=== PATIENT | male | born 1955 | race Caucasian/White ===

== ENCOUNTER 2017-01-06 21:12 | Inpatient (IN) | payer MEDICARE, OTHER ==
[~2017-01-06] VITALS: Ht 165.1 cm; Wt 61.5 kg
[~2017-01-06 21:12] MED LIST: ALBU18HF INH; ASPI-973 PO; CEFU500T61 PO; CHOL200025 PO; FERR140T PO; FOLI1TAB18 PO; LEVO137T24 PO; METH2.5T PO; METR500T PO; OMEP20CA11 PO; OXYC20TA4 PO; SYMINH INHALATION; TIOT18CA3 IH
--- NOTE | 2017-01-06 21:57 | ED.REPORT ---
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 He c/o associated right hip pain. He denies head injury. The pt reports that his shoelace got stuck in the door of his tube balancer, causing him to fall. Pt denies taking blood thinners aside from aspirin. Nursing Notes Stated Complaint: GLF, RIGHT HIP PAIN Chief Complaint: GLF Nursing Notes Reviewed: Yes Allergies: Coded Allergies: Contrast Media (Verified Allergy, Severe, Rash,Itching,, 05/05/16) Penicillins (Verified Allergy, Severe, 05/05/16) unknown but told it was a severe reaction as child iodine (Verified Allergy, Severe, 05/05/16) vancomycin (Verified Allergy, Intermediate, 05/05/16) low platelets Scheduled Aspirin (Aspirin) 81 Mg Tablet 81 MG PO DAILY Cefuroxime Axetil (Cefuroxime) 500 Mg Tablet 500 MG PO BID Cholecalciferol (Vitamin D3) (Vitamin D3) 2,000 Unit Tablet 2,000 UNIT PO DAILY Folic Acid (Folic Acid) 1 Mg Tablet 1 MG PO DAILY Levothyroxine (Synthroid) 137 Mcg Tablet 137 MCG PO DAILY Methotrexate Sodium (Methotrexate) 2.5 Mg Tablet 6 TAB PO WEEKLY Omeprazole (Omeprazole) 20 Mg Capsule.dr 20 MG PO BID Tiotropium [place] (Spiriva) 18 Mcg Cap.w.dev 1 PUFF IH DAILY Scheduled PRN Albuterol Sulfate (Ventolin HFA Inhaler) 200 Puff/18 Gm Inhaler 2 PUFF INH Q4 PRN PRN For Wheezing oxyCODONE (oxyCODONE) 20 Mg Tablet 20 MG PO QID PRN PRN For Pain General Time Seen by Provider: 22:10 Chief Complaint Hip injury right Hx Obtained From: Patient, EMS Arrived By: Ambulance Onset Occurred: Just prior to arrival Symptom Duration: Since onset Caused by: Accidental Location: Hip, R lateral aspect Quality: Itching Severity: Current: Moderate Severity: Maximum: Moderate Recent Healthcare: Recent doctor visit Similar Sx Previous: No Past Medical History Past Medical History RA SBO Kidney stones (1x) Reports: COPD, Cancer (laryngeal metastatic sqamous cell carcinoma with mets to lungs and liver), GERD Reports: Urinary tract infection Past Surgical History Spinal surgery Multiple elbow surgeries Colostomy Reports: Tonsillectomy Family History Noncontributory Smoking History Former Smoker Social History Alcohol Use: Denies alcohol use Drug Use: Denies drug use Other Social History: Good social support, , Local resident Ambulatory Status Independent Review of Systems + right hip pain Denies left hip pain Denies head injury Constitutional: Denies: Fever Complete sys rev & neg: except as marked. Physical Exam Initial Vital Signs Vital Signs (First) Date Time Temp Pulse Resp B/P Pulse Ox O2 Delivery O2 Flow Rate FiO2 01/06/17 22:00 37.1 94 20 135/94 94 Room Air Initial VS: Reviewed Head / Eyes: Atraumatic, Normocephalic Neck: Supple, Full range of motion Respiratory: Breath sounds normal, Clear to auscultation, No respiratory distress Abdomen / GI: Soft, Non-tender Upper Extremities: Vascular intact, Neuro intact Skin: Warm, Dry, No cyanosis Neurologic: Alert, Oriented, Nonfocal Psychiatric: Mood/affect normal, Behavior normal Lower Extremity / Pelvis / MS: Neurologic intact, Vascular intact Right hip is tender with minimal movement. He was carrying his left leg in a flexed position, but he reports that his pain is in the right hip. General/Constitutional: Awake, Alert Cardiovascular: Heart rate NL, Regular rhythm, Heart sounds NL No edema Interpretation & Diagnostics Lab Results Interpretation Result Diagram: 01/07/17 0441 01/07/17 0441 Test 01/06/17 23:07 01/06/17 23:23 Band Neutrophils % 1% (1-5) Prothrombin Time 10.7sec (8.1-12.5) Prothromb Time International Ratio 1.00ratio Activated Partial Thromboplast Time 25.6sec (22.8-33.0) Magnesium Level 1.6mg/dL (1.6-2.6) Lipase 25U/L (13-60) Hold Fry Top Tube Received (Received) ECG Interpretation ECG Interpretation: Sinus rhythm with a rate of 92 Biatrial enlargement Anterospetal infarct, age inderterminate Time: 22:23 Interpreted by: ED physician X-Ray Chest Interpretation Chest Xray Interpretation: Negative View: Portable, 1 view Interpretation / Wet Read by: Wet read ED physician X-Ray Interpretation Xray Interpretation: Intertochanteric fracture X-Ray Ordered: Pelvis, Hip right Interpretation / Wet Read by: Wet read ED physician Re-Eval/Medical Decision Med Decision/Clinical Course 61-year-old with locally recurrent squamous cell carcinoma of the neck and lung, presents after mechanical fall with a right intertrochanteric hip fracture. This will require surgical intervention. Admitted to the medicine service with consultation to orthopedics. Circumscribed area and pubic ramus may represent metastatic disease. Source of Hx: Old records Re-Evaluation/Progress : Time of Eval: 23:16 Re-Evaluation/Progress Note: Pt rechecked. Informed pt of plan for admission. Pt understands and agrees with plan for admission. All questions addressed. Consultation : Referral / Consult Name: Kyle Connor MD Consulted With: Hospitalist Call Returned at: 23:14 Subscription Agent: Will see patient, Agrees with eval, Agrees with plan, Accepts admit Counseled Regarding: Diagnosis, Lab results, Need for admission Discharge & Departure Impression: Primary Impression: Intertrochanteric fracture of right hip Encounter type: initial encounter Fracture type: closed Qualified Code: S72.141A - Displaced intertrochanteric fracture of right femur, initial encounter for closed fracture Disposition: ADMITTED TO HOSPITAL Discharge Condition All VS Reviewed: Yes Condition: Stable Referrals: Antione Rodriguez MD (PCP) Hiwot Attestation Portions of this note were transcribed by Marissa gO. I, Dr. Fried personally performed the history, physical exam and medical decision-making; I reviewed and confirmed the accuracy of the information in the transcribed note. Signed by: Hiwot Jurado, 01/06/17. copies to: Antione Rodriguez MD, Christopher W MD Jan 06, 2017 21:56 Marissa Lopez Jan 06, 2017 22:27
[2017-01-06 22:00] VITALS: BP 135/94; PULSE 94; RESP 20; O2SAT 94
[2017-01-06] MEDS ORDERED: 0.9% Sodium Chloride 1,000 ML IV ONE (22:14)
[2017-01-06] MEDS ORDERED: Ondansetron 2 mg/mL 2 mL Inj IVPUSH PRN ×2 (22:20→23:20)
[2017-01-06] MEDS: HYDROmorphone 0.5 mg/0.5 mL iSecure Syringe IVPUSH PRN ×2 (23:15→23:57)
[2017-01-06] MEDS ORDERED: Polyethylene Glycol (PEG) 17 Gm Powder PO PRN (23:20)
[2017-01-06 23:26] LABS: BASOPHILS % (AUTO) 0.3 % (0-3); EOSINOPHILS % (AUTO) 1.5 % (0-5); MONOCYTES % (AUTO) 8.1 % (4-12); Mean Corpuscular Hemoglobin 30.8 pg (27.0-35.0); Mean Corpuscular Volume 93.5 fL (81-100); NEUTROPHILS % (AUTO) 86.2 % (40-74); Platelet Count 172 bil/L (150-400)
[2017-01-06 23:47] LABS: Magnesium 1.6 mg/dL (1.6-2.6)
[2017-01-07] VITALS (10 sets, daily range): BP systolic 107–156; BP diastolic 75–97; PULSE 89–109; RESP 16–24; O2SAT 90–99
--- NOTE | 2017-01-07 00:01 | PCM.HPMED ---
Subjective Date of Service Jan 06, 2017 Primary Provider: Admitting Physician: Kyle Connor MD Primary Care Physician: Antione Rodriguez MD Attending Physician: Kyle Connor MD Admit Status: From the Emergency Department, Remote Telemetry Chief Complaint: Ground level fall, mechanical History of Present Illness: Mr. 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 Initial imaging revealed a right intratrochanteric fracture. Patient was admitted for evaluation and treatment of acute right intertrochanteric fracture. 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 He denies any loss of consciousness, near syncope, syncope, chest pain, palpitation, dizziness, acute vision changes, headache, head trauma, or any other symptoms or events preceding the fall. Other than this recent fall, patient states he has been doing fairly well over recent weeks. He follows up with Dr. Patel of infectious disease, with most recent visit dated 11/14/2016 , for a lung abscess on long-term antibiotic therapy of clindamycin. He is followed by [facility] oncology, Dr. Steward, for his squamous cell carcinoma of head and neck with multiple metastases, most recent visit dated 11/06/2016, and patient was found to be clinically in remission at that time. He is followed by Dr. Garcia for rheumatoid arthritis. At time of admission, patient denies any pain, including at the right hip. He notes mild pain with mobility of the right hip. Denies any fever, chills, nausea, vomiting, lightheadedness, dizziness. Denies any symptoms of GI upset, or abnormal stool output into his ostomy bag. In the ED, T 37.1, pulse 94, respiratory 20, blood pressure 135/94, 94% in room air; initial labs revealed white count 12.8 with 86.2% neutrophils, hemoglobin 12.4, hematocrit 37.6, platelets 172, electrolytes still pending at time of admission; stat imaging of pelvis revealed right-sided inter-trochanteric fracture. The ED kindly left a voicemail message for orthopedics, this patient was nonemergent. Patient was transported to medical floor in stable condition. Review of Systems: Complete review of systems obtained, pertinent positives and negatives as noted in history of present illness Allergies Coded Allergies: Contrast Media (Verified Allergy, Severe, Rash,Itching,, 05/05/16) Penicillins (Verified Allergy, Severe, 05/05/16) unknown but told it was a severe reaction as child iodine (Verified Allergy, Severe, 05/05/16) vancomycin (Verified Allergy, Intermediate, 05/05/16) low platelets Home Medications From [facility] documentation 11/14/2016: Ramakrishna Johnson [phone] 11/14/2016 02:00 PM 05/16 Medications (Added or Continued this visit) Start Date Medication Directions Stop Date Aspir-81 81 mg tablet,delayed release take 1 tablet by oral route every day CALCIUM take 1 by Oral route every day cefuroxime axetil 500 mg tablet take 1 tablet by oral route every 12 hours cholecalciferol (vitamin D3) 2,000 unit capsule 11/14/2016 clindamycin 300 mg capsule take 1 capsule by oral route every 6 hours ferrous sulfate ER 140 mg (45 mg iron) tablet,extended release folic acid Levoxyl 137 mcg tablet take 1 tablet by oral route every day methotrexate sodium 2.5 mg tablet take 6 tablet by oral route every week metronidazole 500 mg tablet take 1 tablet by oral route every 12 hours OTREXUP inject 0.4 milliliter by subcutaneous route every week oxycodone 20 mg tablet take 1 tablet by oral route every 4 - 6 hours 04/18/2011 PRILOSEC take 1 capsule by oral route every day before a meal SPIRIVA inhale 1 capsule by inhalation route every day Symbicort 160 mcg-4.5 mcg/actuation HFA aerosol inhaler inhale 2 puff by inhalation route 2 times every day in the morning and evening Ventolin HFA 90 mcg/actuation aerosol inhaler inhale 2 puff by inhalation route every 4 - 6 hours as needed PMH Squamous cell carcinoma of the head and neck with metastases, including liver, paratracheal, retrosternal, Oncology history obtained from oncology note dated 11/06/2016: HISTORY OF PRESENT ILLNESS: 1. This is a patient who was originally treated for squamous cell carcinoma of the head and neck. Dr. Loepz' note of October 05, 2016 summarizes chemoradiation therapy for squamous cell carcinoma of the larynx in August 2008, treatment for liver metastasis in December 2009, radiation to a paratracheal mass in 2010 and to a retrosternal lesion in 2010 and left lung in 2010 and, finally, a late recurrence of biopsy-proven squamous carcinoma to a lesion on the right lung with SBRT, completed December 2015. That was the last of his radiation therapy. 2. The patient has had a recent protracted hospitalization for community-acquired pneumonia with lung abscess on the right due to MSSA with acute kidney injury. 3. The cavitary mass in the right upper lobe is being followed without biopsy and is believed to be likely non-malignant. 4. Complex history of multiple treatments for isolated metastatic recurrences of squamous carcinoma originating in the head and neck, as described above. 5. 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 6. Paratracheal recurrences, biopsy proven, in April 2011, treated with radiation followed by Taxol. Considered an oligometastasis. 7. Additional oligometastases to the retrosternal area and liver, liver biopsy proven and treated with stereotactic radiation. 8. Radiation to the liver was completed December 26, 2009. 9. Biopsies of other areas included right mid lung mass with needle core biopsy June 2012 (negative) and left chest wall with a negative biopsy January 2012. 10. Osteoporosis with normal parathyroid hormone and modestly elevated parathyroid related hormone giving rise to concern about persistent cancer. 11. History of small bowel obstruction with complications, ultimately treated with colostomy, takedown and then a permanent colostomy at [facility]. This was not for malignancy, but rather for regional treatment. Originally, the problem was rectal prolapse and the treatment was unsuccessful. 12. The patient has rheumatoid arthritis and has been treated with methotrexate 15 mg weekly for many years. 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 Hx Alcohol Use: No Hx Substance Use: No Hx Tobacco Use: Yes (crit 2008) Smoking Status: Former Smoker Living Arrangement: with Family (, local) Exam Vital Signs Vital Sign - Last Date Time Temp Pulse Resp B/P Pulse Ox O2 Delivery O2 Flow Rate FiO2 01/06/17 23:38 37 89 20 127/87 97 Room Air Exam General: Alert and oriented 3; pleasant thin gentleman resting supine in bed in no acute distress with right knee flexed and hip in abduction HEENT: Atraumatic, normocephalic, sclera anicteric, membranes moist Neck: Full range of motion without pain Cardiac: Regular rate and rhythm, slightly tachycardic at rate 92 at time of examination without any appreciable murmurs Respiratory: Equal and adequate airflow all nazario without any wheeze or rhonchi ; no use of accessory muscles Chest: Atraumatic without any reproducible pain with palpation Abdomen: Soft, nontender, nondistended Extremities: No edema appreciated; significant deformity noted of the left elbow without compromise in mobility; right hip abducted with pain reported with motion and palpation Skin: Warm and dry Neuro: Cranial nerves II-XII grossly intact, speech without slur, facial expressions equal and symmetric Psych: Appropriate mood, affect, and responses to questions; good insight and judgment Lab and Diagnostics Result Diagram: 01/06/17 9622 Assessment & Plan Mr. 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 Initial imaging revealed a right intratrochanteric fracture. Patient was admitted for evaluation and treatment of acute right intertrochanteric fracture. - Hospital day one Right intertrochanteric hip fracture, acute, present on admission, under evaluation - secondary to GLF, mechanical; pt reports shoelace as etiology, no assoc KEARNS, vision changes, syncope, chest pain, SOB - pelvic XR revealed right sided intertrochanteric fracture - ED left VM for ortho dept - Consult placed to ortho (Dr. Haines)-- PLEASE CALL IN AM FOR CONSULTATION, PT LIKELY WILL REQUIRE SURGICAL INTERVENTION - NPO at midnight - Strict bedrest - Pain control: home dosing + dilaudid IV pushes prn pain Abscess of RLL without PNA, chronic, presumed stable - Followed by Dr. Patel outpatient - Abx: Clinda 300mg q6; continued Rheumatoid arthritis, chronic, presumed stable - States he is due for methotrexate 01/07/2017 - Resume home medications when reconciliation complete and when appropriate; patient currently nothing by mouth for tentative surgery Stage IV squamous cell carcinoma of head and neck status post radiation and chemotherapy, chronic, presumed stable - Oncologist: Dr. Steward - Please provide FYI to 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 Pain Evaluation: Adequate Pain Control GI Prophylaxis: Proton Pump Inhibitor VTE Prophylaxis: Sub-Q Heparin (Unfractionated) Resuscitation Status: CPR: Attempt Resuscitation Attending Statement The patient was seen and examined together with Dr. Khan on 01/06 and I agree with the history, exam and plan as outlined in the note above. copies to: Boston Steward MD; Antione Rodriguez MD; Petros Patel MD, Lindsay R DO Jan 07, 2017 00:01 Kyle Connor MD Jan 07, 2017 01:45
[2017-01-07] MEDS ORDERED: Albuterol 2.5 mg/3 mL Inhalation Solution NEB PRN (00:25)
[2017-01-07] MEDS: Heparin 5,000 Unit/mL Inj SUBQ SCH ×3 (00:58→17:41)
--- NOTE | 2017-01-07 05:23 | NUR ---
Admit Note Pt. is a 61 y.o. male that had a GLF w/o LOC. EMS to ED. Imaging done showing Rt Hip Fx. Hx Stage IV SCC head/neck w/ mets to liver and lungs. Sever arthritis cause hands to be almost unusable. Does not have a Lt. elbow do to an accident. Portacath Rt. chest wall. Colostomy Lt. side. Plan is possible sugary.VSS WCTM
[2017-01-07 05:25] LABS: BASOPHILS % (AUTO) 0.3 % (0-3); EOSINOPHILS % (AUTO) 1.2 % (0-5); MONOCYTES % (AUTO) 10.9 % (4-12); Mean Corpuscular Hemoglobin 31.6 pg (27.0-35.0); Mean Corpuscular Volume 94 fL (81-100); NEUTROPHILS % (AUTO) 82.3 % (40-74); Platelet Count 164 bil/L (150-400)
[2017-01-07] MEDS: HYDROmorphone 1 mg/mL Inj IVPUSH PRN ×5 (05:36→23:00)
[2017-01-07] MEDS: Alum-Mag Hydrox-Simeth 30 mL Suspension PO PRN (07:06)
[2017-01-07] MEDS: Budesonide 0.5 mg/2 mL Inhalation Solution NEB SCH ×2 (07:34→19:36)
[2017-01-07] MEDS: Albuterol-Ipratropium 3 mL Inhalation Solution NEB SCH ×2 (07:34→19:36)
[2017-01-07] MEDS ORDERED: CLIN-78 PO (08:05)
[2017-01-07] MEDS ORDERED: FOLI1TAB18 PO (08:08)
[2017-01-07] MEDS ORDERED: FLUT1BLS IH (08:11)
--- NOTE | 2017-01-07 08:15 | DRSVH ---
PROCEDURE: X-RAY CHEST ONE VIEW, PORTABLE ([id number]) INDICATIONS: fall rt hip pain TECHNIQUE: One view of the chest was acquired. COMPARISON: 05/07/2016 FINDINGS: Surgical changes and devices: Right-sided port with tip overlying the mid SVC. Surgical clips at the thoracic inlet centrally. Dental implants. Lungs and pleura: No pleural effusions or pneumothorax. Right upper lobe scar compatible with residu al from previous inflammation. Horizontal atelectasis or scar at the right base medially and in the l eft lower lung field laterally. Mediastinum: Mediastinal contours appear normal. Heart size is normal. Bones and chest wall: No suspicious bony lesions. Fracture of the left seventh posterior rib lateral ly is unchanged and chronic. Chronic deformities of both humeral necks. No acute right-sided rib frac tures seen. Overlying soft tissues appear unremarkable. IMPRESSION: 1. No acute cardiopulmonary abnormality 2. Bilateral pulmonary scarring correlating with the residual from previous exams. Dictated by: Home Ha M.D. on 01/07/2017 at 8:09 Approved by: Home Ha M.D. on 01/07/2017 at 8:13
--- NOTE | 2017-01-07 08:18 | DRSVH ---
PROCEDURE: X-RAY PELVIS W/LAT HIP (RT) ([id number]) INDICATIONS: fall rt hip pain TECHNIQUE: AP pelvis with lateral view(s) of the right hip(s). COMPARISON: None. FINDINGS: Bones: There is a minimally displaced intertrochanteric fracture of the right hip. Pelvic ring appear s intact. No suspicious bony lesions. Fusion hardware L3-5 level. Soft tissues: The visualized bowel gas pattern is normal. No suspicious soft tissue calcifications. Stoma left lower quadrant. IMPRESSION: 1. Acute intertrochanteric fracture right hip, lesser trochanter appearing to be intact, minimal disp lacement. 2. Previous fusion lower lumbar spine. 3. Stoma left lower quadrant. Dictated by: Home Ha M.D. on 01/07/2017 at 8:13 Approved by: Home Ha M.D. on 01/07/2017 at 8:16
[2017-01-07] MEDS ORDERED: HepLOK Flush 100 unit/mL 5 mL Inj IVFLUSH PRN (10:30)
[2017-01-07] MEDS ORDERED: Sodium Chloride LOK Flush 10 mL Syringe IVFLUSH PRN ×2 (10:30)
[2017-01-07] MEDS: Tiotropium 18mcg/Cap 5 Capsule Inhaler Kit INHALATION SCH (10:41)
[2017-01-07] MEDS: Pantoprazole 20 mg ER24 Tablet PO SCH ×2 (10:42→20:07)
--- NOTE | 2017-01-07 13:56 | DRSVH ---
PROCEDURE: CT CHEST WITHOUT CONTRAST ([id number]) INDICATIONS: H/o cancer TECHNIQUE: Noncontrast 5 mm thick sections acquired from the pulmonary apices to the posterior costophrenic angl es. 7 mm thick coronal and sagittal MIP reformats were then acquired. For radiation dose reduction, the following was used: automated exposure control, adjustment of mA and/or kV according to patient size. COMPARISON: [facility], [place], PET NECK TO MID THIGH STD, 07/25/2016, 12:54. [facility], CT, CT CHEST WO CON, 08/29/2016, 12:35. [facility], CT, CT CHEST WO CON, 2015, 15:34. [facility], CT, CT CHEST WO CON, 10/07/2015, 9:55. [facility], CT, CT CHEST W CON, 11/02/2016, 10:51. FINDINGS: Image quality: Excellent. Lungs and pleura: Moderate size region of airspace opacity within the right upper lobe anteriorly is increased in size, measuring 28 mm anteroposterior by 52 mm transverse. There is overlying pleural th ickening measuring 6 mm in thickness and spanning roughly 16 mm anteroposterior, as before. Additiona lly, within the right lung base posteriorly, there is an ill-defined region of opacification measurin g roughly 55 mm transverse, which is not significantly changed. This is associated with overlying ple ural thickening and right posterior chest wall mass, which surrounds the right posterior 9th, 10th, a nd 11th ribs, and is associated with irregular lytic erosion, as well as pathological appearing fract ures of those ribs. No pleural effusions or pneumothorax. Central and peripheral airways are patent and normal in caliber. Mediastinum: Heart size is normal. There is calcification of the coronary vasculature. No pericardi al effusion. No mediastinal adenopathy by size criteria. Thoracic aorta and central pulmonary arter ies are normal in size. Esophagus is normal in caliber. No hiatal hernia. Bones and chest wall: Lytic destruction and pathological fractures of the right posterior 9th, 10th, and 11th ribs is present. There are small lytic abnormalities with pathologic fractures of the left l ateral 7th and 8th ribs. No vertebral body compression fractures. No axillary or supraclavicular cristino nopathy by size criteria. Thyroid gland is not well seen on noncontrast imaging. Abdomen: Visualized upper abdominal solid organs and bowel loops appear normal in the absence of con trast. IMPRESSION: 1. Slight increase in size of right upper lobe malignancy. 2. No change in right lower lobe density. 3. No change in pathologic bilateral rib fractures. Dictated by: Kayce Cantrell M.D. on 01/07/2017 at 13:45 Approved by: Kayce Cantrell M.D. on 01/07/2017 at 13:54
--- NOTE | 2017-01-07 13:59 | DRSVH ---
PROCEDURE: CT HIP RIGHT W/O CONTRAST ([id number]) INDICATIONS: Fracture TECHNIQUE: Noncontrast 3 mm axial sections acquired through the bony pelvis. Additional 3 mm axial sections acq uired through the symptomatic hip joint, with coronal and sagittal reformats. COMPARISON: [facility], CR, XR FEMUR 2VW RT, 01/07/2017, 12:40. FINDINGS: Image quality: Excellent. Bones: There is a mildly displaced, comminuted fracture of the right intratrochanteric femur. No defi nite underlying metastatic disease within the right femur is seen by CT. There is a 15 mm diameter ly tic defect within the left posterior iliac wing. Well-corticated lucencies within the iliac wings nish aterally are present. Soft tissues: Urinary bladder is mildly moderately distended. Left lower quadrant ostomy is present. IMPRESSION: 1. Mildly displaced comminuted right intratrochanteric proximal femur fracture. 2. No evidence of underlying right femoral metaphysis by CT. MRI with and without intravenous contras t would be more sensitive for detection of such. 3. Findings suspicious for left posterior iliac wing metastasis. 4. Distended urinary bladder. Dictated by: Kayce Cantrell M.D. on 01/07/2017 at 13:55 Approved by: Kayce Cantrell M.D. on 01/07/2017 at 13:58
[2017-01-07] MEDS: 0.9% Sodium Chloride 250 ML IV SCH (14:42)
--- NOTE | 2017-01-07 15:29 | DRSVH ---
PROCEDURE: X-RAY RIGHT FEMUR, TWO VIEWS ([id number]) INDICATIONS: Trochantric fracture TECHNIQUE: 2 views of the femur were acquired. COMPARISON: [facility], CR, XR PELVIS W LATERAL HIP RT, 01/06/2017, 22:23. FINDINGS: Bones: Minimally displaced right intertrochanteric hip fracture redemonstrated and no significant ata nge in appearance or alignment. The lesser trochanter appears to be intact. Soft tissues: Vascular calcifications indicate atherosclerosis. IMPRESSION: Stable appearance of minimally displaced right intratrochanteric hip fracture. Dictated by: Pratik ALTAMIRANO Interpreted: David Ha MD on 01/07/2017 at 14:02 Approved by: Home Ha M.D. on 01/07/2017 at 15:27
--- NOTE | 2017-01-07 16:26 | NUR ---
Social Work: Initial Assessment/Multi-Disciplinary Rounds D: EMR reviewed. Please see Initial Assessment linked to this note for more information. Pt is a 61 y/o male admitted [place] with no readmit risk score for intertrochantreric fracture of right hip, GLF per H&P. Pt's insurance is Medicare and [id number]. PCP is Antione Rodriguez. SW met with pt and spouse at bedside to conduct initial assessment. Pt was alert and oriented x3. SW explained role and wrote phone number on white board. SW provided [facility] Discharge Planning Checklist and encouraged pt to contact SW for any discharge planning questions. Pt discussed in multidisciplinary rounds, pt anticipated to discharge to SNF in 2-3 days, pending PT recommendations. Surgery recommending SNF at this time. SW needs identified: Likely SNF placement - no MD orders received, SW will await MD orders to coordinate SNF. SW provided choice list per pt's request. SW explained that SNF placement is only an option if pt has 3-day stay. Pt admitted IN on 01/06. Pt and family agreeable. Pt lives at home with his spouse in [place]. Pt is independent with all ADLs and ambulation. Pt does not own or use DME. Pt drives. Pt has completed DPOA/advanced directive ppw and provided a copy to the hospital. A: Pt who is independent at baseline and has the capacity for self-care. P: Pt anticipated to discharge in 2-3 days. Pt anticipated to need SNF after discharge. SW to await PT recommendations and MD order. Choice list provided per pt's request. No MD orders received at this time. SW will continue to follow for needs until time of discharge. CHAI Stephen Addendum: 01/07/17 at 1633 by STACEY IWTT Amended: Links added.
--- NOTE | 2017-01-07 16:41 | NUR ---
Upton Patient unable to urinate. Bladder scan 667. Upton placed. Patient tolerated placement. Call light and tray table within reach. Will continue to monitor patient hourly.
--- NOTE | 2017-01-07 16:47 | DRSVH ---
[facility] [address] [place] [address] Echocardiogram Report Name: EILEEN PARTICK KStudy Date: 01/07/2017 Height: 65 in Hospital Exam Location: [facility] Weight: 122 lb Gender: Male BSA: 1.6 m2 : 1955 Age: 61 yrs BP: 130/ 86 mmHg Reason For Study: PRE-OP Ordering Physician: [facility]PITALIST [facility] Performed By: Jaye Price Referring Physician: Rick Owen Interpretation Summary 4Pt supine throughout exam unable to move due to fractured hip. No apical window and low parasternal window. Non standard views are noted. 1. Left ventricle is grossly normal in size and functionj. 2. Both atrial are not well examined due to non standard views. 3. Mild tricuspid regurgitation is noted. RVSP 45-50mmHg. Moderate pulmonary hypertension is noted. Etiology cannot be ascertained by the current limited study. Other valve structures are unremarkable. 4. No pericardial or pleural effusion. Procedure: A two-dimensional transthoracic echocardiogram with color flow and Doppler was performed. The study quality was technically difficult. The apical views were not obtained due to pt position.. There is no prior echocardiogram noted for this patient. The patient was in normal sinus rhythm during the exam. Left Ventricle: The left ventricular cavity is small. There is normal left ventricular wall thickness. The left ventricular ejection fraction is grossly normal. The ejection fraction is estimated to be 55-60%. Regional wall motion abnormalities cannot be excluded due to limited visualization. Diastolic function could not be accurately assessed due to unobtainable data. Right Ventricle: The right ventricle is not well visualized. Atria: The left atrium is not well visualized. Right atrium not well visualized. There is no Doppler evidence for an interatrial shunt. Mitral Valve: The mitral valve is normal. There is trace mitral regurgitation. Aortic Valve: The aortic valve is normal in structure and function. No aortic regurgitation is present. Tricuspid Valve: The tricuspid valve is normal. There is mild tricuspid regurgitation. The right ventricular systolic pressure is estimated at least 47 mmHg assuming a right atrial pressure of 3 mm Hg. Pulmonic Valve: The pulmonic valve is not well visualized. Great Vessels: The aortic root is normal size. The ascending aorta is at the upper limits of normal in size. The aortic arch is normal in size. The pulmonary is not well visualized. The IVC is of normal diameter and collapses greater than 50% with a sniff. This suggests a low right atrial pressure of 3 mm Hg. Pericardium/ Pleura There is no pericardial effusion. There is no pleural effusion. MMode/2D Measurements & Calculations LVIDd: 4.1 cm IVC diam LVOT diam: 1.9 cm LV armando. diameter/BSA LVIDs: 2.9 cm : 1.2 cm AoV Openin.8 cm(cm/m^2): 2.5 FS: 28.0 % Ao root diam EPSS: 0.48 cm IVSd: 0.84 cm asc Aorta Diam LVPWd: 0.79 cm Ao Arch Diam (Prox Trans): 2.2 cm LV sys. diameter/BSA (cm/m^2): 1.8 Doppler Measurements & Calculations TR max sandip: 330.7 cm/sec PA V2 mean: 51.0 cm/sec TR max P.8 mmHg PA V2 max: 76.5 cm/sec PA mean P.2 mmHg PA Accel Time: 0.09 sec Electronically signed by: Dr. Bret Alford on Reading Physician:01/07/2017 04:46 PM
--- NOTE | 2017-01-07 18:21 | NUR ---
Pain Management Patient reported 11/19 hip patient. 1mg Dilaudid given every four hours. Denies nausea at this time. Repositions self for comfort. Call light and tray table within reach. Will continue to monitor patient hourly.
[2017-01-07] MEDS: Fluticasone-Salmeterol 500-50 Inhaler INHALATION SCH (20:09)
--- NOTE | 2017-01-07 20:59 | CONS ---
[address] [address] CONSULTATION REPORT PATIENT: EILEEN PATRICK : 1955 MR#: [id number] ADMIT: 01/06/2017 JOB ID: [id number] DATE OF SERVICE: 01/07/2017 CHIEF COMPLAINT: A 61-year-old male with history of a stage IV head and neck cancer, with prior metastatic lesions to the lungs and liver. 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 The patient was admitted to the hospital. The patient sustained a comminuted right intertrochanteric femoral fracture. 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 This was treated in the past with chemotherapy and radiation therapy. Evidently he has not had any recurrence in that area but did have metastatic lesions to the liver. He also has had a lung abscess that Dr. Patel has been treating from an Infectious Disease standpoint with clindamycin. He has been on long-term antibiotics since April. He has been on clindamycin. The patient has also been seen by Cardiology in the past. 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 He also has history of rheumatoid arthritis and is on methotrexate. Additional surgeries have included prior surgeries, small bowel obstructions requiring a colostomy that is permanent and this was evidently not related to any cancer. 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 Past medical history also pertinent for history of renal stones. He has also had history of urinary tract infections. FAMILY HISTORY: Positive family history for rheumatoid arthritis. 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 The patient quit smoking in 2008. He does not drink. HEENT: Patient is not complaining of any change in visual or hearing function. Respiratory: No acute shortness of breath. Cardiovascular: No chest pain. GI: No nausea, vomiting. : He does have a longstanding colostomy. Musculoskeletal: Right hip pain. Right intertrochanteric femoral fracture. MEDICATIONS: Include cefuroxime, vitamin D3, folic acid, Synthroid, methotrexate, omeprazole and Spiriva. He takes albuterol inhalers on a p.r.n. basis and oxycodone p.r.n. as needed for pain. PRIOR SURGERIES: Include a spinal surgery, multiple elbow surgeries. Tonsillectomy and colostomy. He has plate and screws in the lumbar spine. PHYSICAL EXAMINATION: A 165 cm, 55 kg male. Patient appears somewhat cachectic. He has a raspy throat. He has an indwelling chemotherapy port in the chest. He has a colostomy. Skin over the right hip is intact. Peripheral pulses intact. He is able to move his foot. Right leg is slightly shortened. X-rays show that he has a comminuted right intertrochanteric femoral fracture. Chest x-ray showed pulmonary scarring but no acute pulmonary issues. Chest CT shows increase in the size of the right upper lobe mass. No change in the right lower lobe density, and he has pathologic bilateral rib fractures consistent with no change. The patient evidently has multiple lytic lesions in the right posterior 9th, 10th, and 11th ribs. Small lytic abnormalities with pathologic fractures in the left 7th and 8th ribs. Hip CT shows mild displaced comminuted right intertrochanteric femoral fracture. CT scan was suspicious for left posterior iliac wing metastases. Femur x-ray shows that he has a minimally displaced right intertrochanteric femoral fracture. LABORATORY TESTING: Shows a white count of 12,800, hemoglobin 12, hematocrit 37.6, platelet count 172,000. Repeat labs today show white count 9600, hemoglobin 11.8, hematocrit 35.3, platelet count 164,000. PMNs are elevated at 82.3%. Sodium 137, potassium 4.8, chloride 101, CO2 23, BUN 22, creatinine 1.01. Glucose at 112. Liver function tests within normal limits. PT 10.7, INR 1.0. 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 A CT of the pelvis also suggestive of possible iliac wing metastases. The patient has history of an upper lobe abscess that has been treated by Infectious Disease, on chronic antibiotics, and some history of cardiac issues. PLAN: He will require preoperative Cardiology clearance. The plan would be for open reduction and internal fixation of the fracture to allow the patient to be mobilized. He has multiple medical risks with his history of metastatic cancer. There is risk for bleeding, infection, pain, and stiffness, damage to surrounding neurovascular structures, potential for delayed union, nonunion, malunion, and hardware failure. A long astrid would need to be placed to protect him from breaking below a shorter astrid, particularly with his history of malignancy. The patient will be seen by Dr. Patel from Infectious Disease. We will also obtain all the records from his artificial marble worker. Cardiac echo has also been ordered and performed. Patient's ejection fraction is somewhere between 55% to 60%. It was evidently a difficult echocardiogram to perform. The mitral valve was noted to be normal. Aortic valve was normal with no regurgitation. There was some mild tricuspid regurgitation. There was no evidence of any pericardial effusion and no obvious pleural effusion, at least on the cardiac echo. The patient will require again Cardiology clearance prior to surgery, and Anesthesiology consultation. The patient is a high risk for surgery but the plan would be to stabilize the hip fracture so that he could be mobilized. CC: [facility] Orthopedics
--- NOTE | 2017-01-07 21:23 | CONS ---
[address] [address] CONSULTATION REPORT PATIENT: EILEEN PATRICK : 1955 MR#: [id number] ADMIT: 01/06/2017 JOB ID: [id number] DATE OF SERVICE: 01/07/2017 I thank Drs. Jorge Haines as well as Dr. Tawana Khan for this timely consult. REASON FOR CONSULTATION: Follow up lung abscess. HISTORY OF THE PRESENT ILLNESS: The patient is an unfortunate, 61-year-old gentleman with a rather amazing collection of medical problems, whom I have followed for the past nine months for a probable lung abscess. The patient's relevant past medical history includes an eight-year history of metastatic head and neck carcinoma with mets to the liver and lung, for which he has received a great deal of treatment modalities including last year some x-ray therapy to the right lung. Last year, around the , he was admitted with a large right upper lobe cavity which was felt to represent either tumor, radiation injury, or some form of infection or perhaps a combination of all the above. Cultures, at that time, were done and yielded MSSA, which was clindamycin susceptible. Initially, this was thought to be a lung abscess possibly with some lung cancer as well. He was treated originally with cefuroxime and Flagyl orally. I subsequently saw him in clinic and changed that to clindamycin which he has been on now for over six months. Serial CT scans of the chest up until recent times have shown decreasing size of this right lower lobe cavitary process, which Dr. Steward of Heme-Onc and I have discussed on numerous occasions and which we believe is primarily lung abscess, though it is difficult to rule out some recurring or persisting pulmonary metastatic malignancy. The patient also suffers from rheumatoid arthritis and takes weekly methotrexate and has some underlying COPD. 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 At that point, he struck his right hip very forcefully and then immediately developed very severe pain. This was strictly due to his shoe lace becoming tangled up with the overlock elastic attacher and there was no associated loss of consciousness, palpitations, syncope or any other event which precipitated this disaster. Subsequently, the patient was evaluated and was found to have a relatively nondisplaced but still very significant, of course, right hip fracture and he is admitted for treatment of that right intertrochanteric fracture. Infectious Disease is requested at this time regarding the nature of the right upper lobe process and which antibiotics should be continued or discontinued. PAST MEDICAL HISTORY: 1. Stage IV head and neck cancer with mets to liver and lungs, most recently status post radiation therapy to the right lung in 2016 with fair control, though he is known to have those and other bony mets as well. 2. Lung abscess, originally diagnosed April 2016, and now on clindamycin therapy. 3. Rheumatoid arthritis. 4. COPD. 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 He was a cigarette smoker until about 2004 when he quit. He does not consume any significant amount of alcohol and lives with his in the local area at this point. FAMILY HISTORY: Positive for a family member with tuberculosis apparently. The patient reports he has been told in the past that he has latent tuberculosis, though when we attempted to confirm this back in April with a QuantiFERON Gold, we got an indeterminate result. REVIEW OF SYSTEMS: Was done. The patient states that up until the time of his fracture he was not having any fevers, chills, or sweats. He has not had any significant sore throat or new sore throat or significant cough or sputum production beyond his low-level baseline cough. No new chest pain. No hemoptysis at any time. No nausea, vomiting, or diarrhea. No dysuria. Note, that the patient also has a colostomy which I failed to mention in the history of the present illness and this colostomy was done about three years ago and followed a complicated and unsuccessful surgery for rectal prolapse. Aside from the colostomy though, the patient has no new GI symptoms. Of course, he has terrible pain in his right hip at the site of his recent fracture. His rheumatoid arthritis has otherwise been relatively quiescent recently. Remainder of the review of systems is negative. PHYSICAL EXAMINATION: Reveals an afebrile gentleman, temperature 36.8, pulse 108, respiratory rate 20, blood pressure 107/75. He is saturating well on room air. He has been afebrile during his 24 hours or so here in the hospital. He is awake, alert, and lucid and appears to me this afternoon as he has on numerous clinic visits during the past eight months or so. There is no evidence of head trauma or temporal wasting. No conjunctivitis. No oral thrush or hairy leukoplakia. His neck is supple. Cardiac tones: Regular rate and rhythm without murmur. Lungs: He has a few rales in the right upper lobe which have been heard there before. Abdomen soft, nontender without organomegaly. There is a colostomy in the left lower quadrant. There is no inguinal adenopathy. No cervical adenopathy that I can appreciate. He does have significant rheumatoid arthritis type changes of his hands as well as his elbows bilaterally, but there does not appear to be any acute synovitis. Both his lower extremities are placed in a device to maintain the proper angle at this point. He has tenderness over the right hip joint which I did not palpate too vigorously as it is obvious what has happened there. No evidence for cellulitis though in the lower extremities and no evidence for swelling of the lower extremities or synovitis, except for of course the pain involving the right hip joint. The patient is neurologically intact though it has been a bit difficult to examine with his right hip just recently fractured. No skin rash is noted. LABORATORIES: Include white count 12,000 yesterday in the ED, now 9000. Diff with 82% segs, which is probably secondary to stress. Creatinine 1.01. LFTs are normal. Micro studies are not available from this admission. I reviewed the April 2016 micro and, of course, the sputum was positive for MSSA at that time. IMAGING: Includes serial scans done over the last year looking at this right upper lobe infiltrate. Recall that back in April on , in fact, he had a very large patchy right-sided infiltrate which is in an area where he had a biopsy as well as radiation earlier. Subsequently this became a right upper lobe cavitary mass. It was unclear whether it was abscess or malignancy, but over time, actually serial films have shown decrease in the size of this and our most recent CT scan was done in October which shows a continued decrease in the right pulmonary spiculated mass which we believe to be primarily infectious. Today's CT scan was carefully reviewed on the screen, however, and it shows perhaps a slight increase in the right upper lobe process. The radiologists believe this has more of a malignant than infectious appearance, per their report, but I have not had a chance to review the films and compare it to prior films with Radiology, which I plan to do tomorrow. My interpretation of this film is that it shows dramatic improvement over what we saw back in the early part of 2017 with respect to this mass, but it may be a little worse than the one done in October. the radiologists note that there is also an ill-defined density in the right base which has not changed much recently and some underlying pleural thickness. Lytic and pathologic fractures are seen in the right 9th,10th, and 11th posterior ribs as well as some fractures in the lateral 7th and 8th rib. IMPRESSION: This is a very complicated case of a gentleman with known metastatic disease in his right chest who underwent radiation therapy to that area last year as well as a biopsy. He subsequently developed an unusual-appearing infiltrate and it was unclear whether that represented malignancy or infection. Empiric treatment for infection with cefuroxime and Flagyl, followed more recently by clindamycin has demonstrated a continual decrease in the size of this, which has encouraged Dr. Steward and I to think that this may be all infection. Unfortunately, it seems that this decreasing in size is now starting to reverse itself, which of course does raise concerns about the possibility of malignancy and it may be that this was always a mixed malignant/ infectious process in the right lung, but time will tell. At this point, I do not see any additional need for pulmonary workup, though it is reasonable to continue on clindamycin as this was our plan in terms of treatment of his right upper lobe process. This right upper lobe infiltrate should not be a bar to anesthesia and appropriate repair of his right hip fracture. RECOMMENDATIONS: 1. Will continue with a clindamycin 300 mg p.o. q.i.d. 2. Preop antibiotics for the surgery could include daptomycin as the patient is allergic to VANCOMYCIN and I think that would probably be the safest option in this circumstance. Cefazolin would also not be unreasonable given the fact that the patient has never had MRSA. 3. Thank you very much for this consult. I plan to review the CT scan of the chest with Radiology tomorrow and discuss the case with Dr. Steward.
[2017-01-08] VITALS (18 sets, daily range): BP systolic 97–164; BP diastolic 50–85; PULSE 88–124; RESP 16–22; O2SAT 91–100
[2017-01-08] MEDS: Heparin 5,000 Unit/mL Inj SUBQ SCH ×2 (00:54→08:38)
[2017-01-08] MEDS: 0.9% Sodium Chloride 1,000 ML IV SCH ×4 (01:36→23:19)
[2017-01-08] MEDS: HYDROmorphone 1 mg/mL Inj IVPUSH PRN ×5 (03:39→23:15)
--- NOTE | 2017-01-08 04:37 | NUR ---
Pain management Pt reports pain 5-/10. Having muscle cramps, spasms at times. IV dilaudid 1mg given at 4hr intervals and Pt required PRN oxycodone x1 dose. Pt required help with repositioning. Pt is NPO at midnight pending surgery. IV fluids changed to NS 100ml/hr. Care continues
[2017-01-08 05:17] LABS: BASOPHILS % (AUTO) 0.1 % (0-3); EOSINOPHILS % (AUTO) 3.1 % (0-5); MONOCYTES % (AUTO) 10.2 % (4-12); Mean Corpuscular Hemoglobin 31.2 pg (27.0-35.0); Mean Corpuscular Volume 95.1 fL (81-100); NEUTROPHILS % (AUTO) 82.4 % (40-74); Platelet Count 128 bil/L (150-400)
[2017-01-08] MEDS: Budesonide 0.5 mg/2 mL Inhalation Solution NEB SCH ×2 (07:35→20:15)
[2017-01-08] MEDS: Albuterol-Ipratropium 3 mL Inhalation Solution NEB SCH ×2 (07:35→20:15)
[2017-01-08] MEDS ORDERED: DAPTOMYCIN IV ONE (07:56)
[2017-01-08] MEDS ORDERED: SODIUM CHLORIDE 0.9% IV ONE (07:56)
[2017-01-08] MEDS: Pantoprazole 20 mg ER24 Tablet PO SCH ×2 (08:30→20:02)
[2017-01-08] MEDS: Tiotropium 18mcg/Cap 5 Capsule Inhaler Kit INHALATION SCH (08:44)
[2017-01-08] MEDS: Fluticasone-Salmeterol 500-50 Inhaler INHALATION SCH ×2 (08:45→20:02)
--- NOTE | 2017-01-08 08:58 | PCM.PNMED ---
Subjective Date of Service Jan 08, 2017 Subjective Patient seen and examined today. He said he is nervous waiting for his surgery. Vitals noted. Exam Vital Signs Vital Sign - Last Date Time Temp Pulse Resp B/P Pulse Ox O2 Delivery O2 Flow Rate FiO2 01/08/17 08:04 37.2 118 20 104/68 95 Room Air Intake and Output 01/07/17 01/07/17 01/08/17 Cumulative From/Thru 15:00 23:00 07:00 01/06/17 22:00 - 01/08/17 05:58 Intake Total 463 ml 463 ml Output Total 750 ml 350 ml 1100 ml Balance -750 ml 113 ml -637 ml Intake Oral 0 ml 0 ml IV Total 463 ml 463 ml Output Urine Total 750 ml 350 ml 1100 ml Stool Total 0 ml 0 ml # Bowel Movements 0 0 Exam General: Alert and oriented 3; pleasant thin gentleman resting supine in bed in no acute distress with right knee flexed and hip in abduction HEENT: Atraumatic, normocephalic, sclera anicteric, membranes moist Neck: Full range of motion without pain Cardiac: Regular rate and rhythm, slightly tachycardic at rate 92 at time of examination without any appreciable murmurs Respiratory: Equal and adequate airflow all nazario without any wheeze or rhonchi ; no use of accessory muscles Chest: Atraumatic without any reproducible pain with palpation Abdomen: Soft, nontender, nondistended Extremities: No edema appreciated; significant deformity noted of the left elbow without compromise in mobility; right hip abducted with pain reported with motion and palpation Skin: Warm and dry Neuro: Cranial nerves II-XII grossly intact, speech without slur, facial expressions equal and symmetric Psych: Appropriate mood, affect, and responses to questions; good insight and judgment Lab and Diagnostics Result Diagram: 01/08/17 0510 01/08/17 0510 X-Rays, CTs and MRIs CT HIP 1. Mildly displaced comminuted right intratrochanteric proximal femur fracture. 2. No evidence of underlying right femoral metaphysis by CT. MRI with and without intravenous contrast would be more sensitive for detection of such. 3. Findings suspicious for left posterior iliac wing metastasis. 4. Distended urinary bladder. XR LEG IMPRESSION: Stable appearance of minimally displaced right intratrochanteric hip fracture. Assessment & Plan Mr. 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 Initial imaging revealed a right intratrochanteric fracture. Patient was admitted for evaluation and treatment of acute right intertrochanteric fracture. Right intertrochanteric hip fracture, acute, present on admission, under evaluation - secondary to GLF, mechanical; pt reports shoelace as etiology, no assoc KEARNS, vision changes, syncope, chest pain, SOB - Imaging revealed right sided intertrochanteric fracture - Surgery today - one dose of daptomycin prior to surgery - Pain control: home dosing + dilaudid IV pushes prn pain Abscess of RLL without PNA, chronic, presumed stable - discussed with dr. Patel, who had discussed with radiology, abscess is slightly increased in size - Abx: Clinda 300mg q6; continued - Dr. 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 Steward - CT hip shows some possible mets to the left iliac crest - Followed by Dr. Schmitt/Dr Steward Leukocytosis, acute, present on admission, under evaluation - trended down and then trended up today - May be secondary stress response, PCT mildly elevated - Continue to monitor, pt denied any preceding illness to GLF - on clinda, will add dapto one time dose before surgery Small bowel obstruction status post ostomy placement, chronic, presumed stable - Please provide patient ostomy bag changes as needed COPD, presumed stable - Duonebs BID + budesonide BID + accunebs q2h prn - Resume other home meds as appropriate when necessary PRN fever, bowel, nausea, pain DVT: Hep q8, hold prior to surgery Diet: NPO GI: PPI, home dose IVF: NS 100 Code: FULL CODE, on tele Patient status: Patient is admitted under inpatient status with expected length of stay greater than 2 midnights due to severity of presenting symptoms, risk of adverse event, and complexity of treatment plan. Pain Evaluation: Adequate Pain Control GI Prophylaxis: Proton Pump Inhibitor VTE Prophylaxis: Sub-Q Heparin (Unfractionated) VTE Mechanical Devices: Intermittant Pneumatic CD Resuscitation Status: CPR: Attempt Resuscitation Time spent 35 mins You Ware MD Jan 08, 2017 08:58
--- NOTE | 2017-01-08 09:06 | PROG NOTE ---
[facility] [address] [place] [id number] PROGRESS NOTE PATIENT: EILEEN PATRICK : 1955 MR#: [id number] ADMIT: 01/06/2017 JOB ID: [id number] DATE: 01/08/2017 INFECTIOUS DISEASE FOLLOW UP NOTE: REASON FOR FOLLOWUP: Right-sided pulmonary process. INTERVAL HISTORY: The patient reports overnight he has been feeling okay except for the rather severe pain in his hip whenever he tries to move. He awaits pinning of his hip this afternoon at 1415. In discussing his pulmonary situation in greater detail, the patient reports he has had no recent fevers, chills or night sweats. He has an intermittently productive cough, which he uses just to clear sputum and never hemoptysis. There is never any foul odor to his sputum. His weight has been stable and he does not have any constitutional symptoms of any kind. Recall that when he was originally found to have a large right upper lobe process back in April, we were uncertain as to whether it was infection or tumor. That area clearly dramatically improved and his infectious symptoms resolved with long course of antibiotics. Originally was cefuroxime, Flagyl and later with clindamycin which he continues on at this point. PHYSICAL EXAMINATION: Reveals an afebrile gentleman, temperature was 37.8 during the night, 37.2 right now. Pulse 118, respiratory rate 20, blood pressure 104/68. He is saturating well on room air. Examination of the mental status reveals it to be clear. Oral cavity, no thrush or pharyngitis. Lungs: Posteriorly with a few crackles on the right side but not much, otherwise relatively clear. Cardiac tones: Regular rate and rhythm without murmur. Abdomen benign. Right hip is splinted in such a way as to minimize pain. LABORATORIES: Include white count 14,000 but yesterday was 9000. Mild left shift is noted. Creatinine 0.93. LFTs are normal. Micro studies not done during this admission. IMAGING: Was reviewed in detail with Dr. Lowry in the radiology suite. Starting with a very large complex and partially cavitary process back in April, there is a great deal of improvement until about August on serial CT scans. This scan compared to August shows perhaps a slight increase in the size of this atypical mass and Dr. Lowry and I discussed whether this was infection, tumor or both. Dr. Lowry clearly felt that probably at least a portion of this was malignant as it did not have the appearance of radiation pneumonitis nor does it appear any more to be a classic lung abscess. IMPRESSION: Probable ongoing metastatic malignancy in the right upper lobe with infectious component which has likely now resolved after eight months of antibiotic therapy. RECOMMENDATIONS: 1. Will continue with clindamycin for the time being until the situation is clarified but I am starting to think that the infection has been adequately treated after more than eight months of continual antibiotic pressure and to overlap with his malignancy. 2. Would consult Pulmonary to see if this is amenable to bronchoscopic biopsy and if not we will likely need a needle biopsy to resolve the issue whether this is recurrent malignancy. 3. I have discussed the case this morning with Dr. Steward of Heme/Onc as well. 4. ID will continue to closely follow this patient with you.
[2017-01-08] MEDS: 0.9% Sodium Chloride 250 ML IV SCH (10:26)
--- NOTE | 2017-01-08 14:23 | NUR ---
Off Unit Patient off unit to PACU via bed.
[2017-01-08] MEDS ORDERED: Lactated Ringer's 1,000 ML IV SCH ×2 (14:31→15:32)
[2017-01-08] MEDS ORDERED: Lactated Ringer's 500 ML IV PRN ×2 (14:31→15:32)
[2017-01-08] MEDS ORDERED: fentaNYL-PF 50 mCg/mL 2 mL Inj IVPUSH PRN ×2 (14:35→15:35)
[2017-01-08] MEDS ORDERED: EPHEDrine Sulfate 50 mg/mL Inj IVPUSH PRN ×2 (14:35→15:35)
[2017-01-08] MEDS ORDERED: Labetalol 5 mg/mL 20 mL Inj IV PRN ×2 (14:35→15:35)
[2017-01-08] MEDS ORDERED: Ondansetron 2 mg/mL 2 mL Inj IVPUSH PRN ×3 (14:35→17:10)
[2017-01-08] MEDS ORDERED: Phenylephrine 10,000 mCg/mL Inj IVPUSH PRN ×2 (14:35→15:35)
[2017-01-08] MEDS ORDERED: MetoCLOpramide 5 mg/mL 2 mL Inj IVPUSH PRN ×2 (14:35→15:35)
[2017-01-08] MEDS ORDERED: hydrALAZINE 20 mg/mL Inj IVPUSH PRN (14:35)
[2017-01-08] MEDS ORDERED: Atropine 0.4 mg/mL Inj IVPUSH PRN ×2 (14:35→15:35)
[2017-01-08] MEDS ORDERED: HYDROmorphone 1 mg/mL Inj IVPUSH PRN ×3 (14:35→17:10)
[2017-01-08] MEDS ORDERED: Dexamethasone 4 mg/mL Inj IVPUSH PRN (14:35)
[2017-01-08] MEDS ORDERED: HYDROmorphone 1 mg/mL Inj ONE (14:46)
[2017-01-08] MEDS ORDERED: Ondansetron 2 mg/mL 2 mL Inj ONE (14:46)
[2017-01-08] MEDS ORDERED: fentaNYL-PF 50 mCg/mL 2 mL Inj ONE (14:46)
[2017-01-08] MEDS ORDERED: Succinylcholine Chloride 20 mg/mL 5 mL Inj ONE (14:46)
[2017-01-08] MEDS ORDERED: Phenylephrine 10,000 mCg/mL Inj ONE (14:46)
[2017-01-08] MEDS ORDERED: Dexamethasone 4 mg/mL Inj ONE (14:46)
[2017-01-08] MEDS ORDERED: Ketamine 10 mg/mL 20 mL Inj ONE (14:46)
[2017-01-08] MEDS ORDERED: Rocuronium 10 mg/mL 5 mL Inj ONE (14:46)
[2017-01-08] MEDS ORDERED: Propofol 10 mg/mL 20 mL Inj ONE (14:46)
--- NOTE | 2017-01-08 14:52 | NUR ---
Social Work- Update Pt to OR today. SNF order is acknowledged. SW updated pt's whiteboard with contact information and plan. SW left SNF choice list at pt's bedside. SW to follow up with pt regarding SNF recommendation and choice tomorrow, POD 1. Brittany Saucedo MSW
[2017-01-08] MEDS ORDERED: Albuterol-Ipratropium 3 mL Inhalation Solution NEB PRN (15:35)
--- NOTE | 2017-01-08 15:36 | PCM.HPANE ---
Patient Data Date of Service: Jan 08, 2017 ([id number]) Surgeon Admitting Provider:Kyle Connor MD Attending Provider:You Ware MD Primary Care Physician:Antione Rodriguez MD Other Provider: Reason for Visit Intertrochanteric Fracture Of R Hip,Glf INTERTROCHANTERIC FRACTURE OF R HIP,GLF Ht/WT & BMI Height (Feet): 5 Height (Inches): 5.00 Weight (Kilograms): 59.700 Body Mass Index 20.39 Allergies Coded Allergies: Contrast Media (Verified Allergy, Severe, Rash,Itching,, 05/05/16) Penicillins (Verified Allergy, Severe, 05/05/16) unknown but told it was a severe reaction as child iodine (Verified Allergy, Severe, 05/05/16) vancomycin (Verified Allergy, Intermediate, 05/05/16) low platelets Past Anesthesia History Anesthesia History: Positive for:: Abnormal Airway (s/p radiation therapy for head/neck cancer), Denies:: Anesthesia Reactions, Difficult Intubation Diabetes History Hx Diabetes?: No MRSA 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 lung abscess 01/07/17 Albuterol Sulfate (Ventolin HFA Inhaler)200 Puff/18 Gm Inhaler2 Puff INH Q4 PRN For Wheezing 05/05/16 Aspirin 81 Mg Pnkubr70 Mg PO QPM 05/05/16 Methotrexate Sodium (Methotrexate)2.5 Mg Tqitis68 Mg PO Q Saturday05/05/16 Tiotropium [place] (Spiriva)18 Mcg Cap.w.dev1 Puff IH DAILY 04/12/16 Cholecalciferol (Vitamin D3) (Vitamin D3)2,000 Unit Tablet2,000 Unit PO DAILY 12/08/15 oxyCODONE 20 Mg Zyeccq01 Mg PO QID PRN For Pain 04/13/14 Omeprazole 20 Mg Capsule.dr20 Mg PO BID 03/11/14 Discontinued Reported Medications Budesonide/Formoterol 160-4.5 mcg Inh (Symbicort 160-4.5 mcg Inh)120 Puff Inhaler2 Puff INHALATION BID Ref 0 04/12/16 Ferrous Sulfate 140 Mg Tablet.er50 Mg PO DAILY 30 Days Ref 0 12/08/15 Discontinued Scripts Metronidazole (Flagyl)500 Mg Dkkjbq552 Mg PO BID #28 TABLET Prov:Eugene,Albina L DO 05/11/16 Cefuroxime Axetil (Cefuroxime)500 Mg Rigghx050 Mg PO BID #28 TABLET Prov:Eugene,Albina L DO 05/11/16 History History of ENT Problems?: Yes HEENT History: Positive for:: Abnormal Airway Dysphagia (Mild from radiation txt for throat Cancer.) TMJ Denies:: Cataracts Difficult Intubation Hearing Problem Sinus Problem Denture Type: Full- Upper Full- Lower Teeth Condition: Missing Teeth Hx of Heart Problems?: No Cardiovascular History: Positive for:: Irregular Heartbeat (SEPSIS) Hx of Respiratory Problem?: Yes Respiratory History: Positive for:: COPD (2013) Chest Surgery (radial surgery for cancer) Cough Dyspnea Pneumonia () Tuberculosis (treated in ) Denies:: Asthma Emphysema Hemoptysis Hx Neurologic Problems?: Yes Neurological History: Positive for:: Dizziness (VERTIGO) Seizures (31 yaers ago) Denies:: Alzheimer's Disease CVA Dementia Headaches Parkinson's Disease Hx of GI Problems?: Yes Hx of Problems?: Yes Genitourinary History: Positive for:: Kidney Stones (one time) Urinary Tract Infection (2006) Denies:: HX of Hemodialysis HX of Peritoneal Dialysis: No Male Hx: Denies:: Prostate Problems Scrotal Mass Testicular Surgery Skin History: Denies:: History Skin Disorders? Hx Musculoskeletal Problems?: Yes Musculoskeletal History: Positive for:: Back Injury (L3-L4 herniated disk with fusion) Musculoskeletal Trauma (Lt. elbow mishapen; see above.) Denies:: Joint Replacement Hx of Psycho/Social Problems?: No Hx Surgeries?: Yes Hx Any Other Health Problems?: Yes Other History: Positive for:: Cancer (HEAD AND NECK CANCER, LIVER CA, BOTH LUNGS ) Hospitalization Thyroid Disease (PT ON LEVOTHYROXINE) Denies:: Endocrine Disease History Blood Transfusions: Positive for:: Accept Blood Products? 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 Hx Alcohol Use: NoHx Substance Use: No Smoking Status: Former Smoker Have You Smoked inLast 12 mo: No (QUIT 2008) Stop/Bang Treated for Sleep Apnea?: No Do You Have a CPAP Machine?: No S-Snoring: Do You Snore Loudly: No T-Tired: feel tired, fatigued: No O-Obsered: Observed not breath: No P-Blood Pressure: treated: No B- Body Mass Index > 35 kg/m2: No A- Age over 50: Yes N- Neck Large Circumference: No G- Gender Male: Yes SADA Total Score: 1 Risk Assessment Category Category 1A: Patient has history of documented sleep apnea, and HAS NOT received any narcotic, sedative or anesthesia administration during this stay. Category 1B: Patient has history of documented sleep apnea, and HAS received any narcotic , sedative or anesthesia administration during this stay Category 2: Patient has SUSPECTED Obstructive Sleep Apnea, and HAS received any narcotic , sedative or anesthesia administration during this stay. Category 3: Patient has SUSPECTED Obstructive Sleep Apnea and HAS NOT received narcotic, sedative or anesthesia administration during this stay. Category 4: Outpatient in Procedural Areas with known sleep apnea or who screen positive for High Risk via the STOP/BANG questionnaire. Exam Exam Vital Signs Vital Signs Date Time Temp Pulse Resp B/P Pulse Ox O2 Delivery O2 Flow Rate FiO2 01/08/17 12:01 37.1 110 20 124/84 91 Room Air 01/08/17 10:57 118 01/08/17 08:04 37.2 118 20 104/68 95 Room Air 01/08/17 07:35 114 20 92 Room Air General Appearance: Alert, Oriented X3, Cooperative, No Acute Distress HEENT/AIRWAY: MP 2, Neck Movement (some limited side to side movement, but good flexion and extension), Mouth Opening (3 FBMO) Lungs: Clear to Auscultation, Diminished Heart: Exam Unremarkable, Regular Rate/Rhythm, No Murmurs/Rubs/Gallops Meds/Labs/Diagnostics Admission Meds Current Medications Salmeterol Xinafoate/ Fluticasone 1 puff 1 puff BID INHALATION Last administered on 01/08/17t 08:45; Start 01/07/17 at 20:30 Sodium Chloride 1,000 ml @ 100 mls/hr Q10H IV Last administered on 01/08/17 12:12; Start 01/08/17 at 01:25 Daptomycin/Sodium Chloride (Cubicin Inj/ Normal Saline) 50 ml @ 100 mls/hr ONCE ONCE IV Last administered on 01/08/17 10:17; Start 01/08/17 at 07:56; Stop 01/08/17 at 08:25; Status DC Cyclobenzaprine HCl (Flexeril) 10 mg ONCE ONCE PO Last administered on 10:39; Start 01/08/17 at 09:45; Stop 01/08/17 at 10:20; Status DC Labs Test 01/06/17 23:07 01/06/17 23:23 01/07/17 04:41 01/08/17 05:10 Band Neutrophils % 1% (1-5) Prothrombin Time 10.7sec (8.1-12.5) Prothromb Time International Ratio 1.00ratio Activated Partial Thromboplast Time 25.6sec (22.8-33.0) Magnesium Level 1.6mg/dL (1.6-2.6) Lipase 25U/L (13-60) Hold Fry Top Tube Received (Received) Total Bilirubin 0.3mg/dL (0.0-1.2) Aspartate Amino Transf (AST/SGOT) 32U/L (0-50) Alanine Aminotransferase (ALT/SGPT) 18U/L (0-44) Alkaline Phosphatase 51U/L (25-160) Total Protein 6.6g/dL (6.4-8.4) Albumin 3.7g/dL (3.4-5.0) White Blood Count 14.2th/mm3 (3.8-10.1) Red Blood Count 3.85mil/mm3 (4.40-5.80) Hemoglobin 12.0g/dL (13.8-17.2) Hematocrit 36.6% (41.0-50.0) Mean Corpuscular Volume 95.1fL (81-100) Mean Corpuscular Hemoglobin 31.2pg (27.0-35.0) Mean Corpuscular Hemoglobin Concent 32.8% (32.0-37.0) Red Cell Distribution Width 14.9% (12.3-15.4) Platelet Count 128bil/L (150-400) Neutrophils (%) (Auto) 82.4% (40-74) Lymphocytes (%) (Auto) 3.9% (14-46) Monocytes (%) (Auto) 10.2% (4-12) Eosinophils (%) (Auto) 3.1% (0-5) Basophils (%) (Auto) 0.1% (0-3) Sodium Level 135mEq/L (134-144) Potassium Level 4.6mEq/L (3.5-5.2) Chloride Level 97mEq/L (97-108) Carbon Dioxide Level 23mmol/L (18-29) Blood Urea Nitrogen 17mg/dL (8-27) Creatinine 0.93mg/dL (0.76-1.27) Estimat Glomerular Filtration Rate 87mL/min (>59) Glucose Level 101mg/dL (60-99) Calcium Level 8.5mg/dL (8.5-10.1) Procalcitonin 0.15ng/mL (0.00-0.08) Test 01/08/17 14:10 Plan Impression Patient chart reviewed, patient interviewed and anesthestic plan with risks, benefits, and alternatives discussed, and informed consent obtained. NPO per Anesth. Guidelines: Yes ASA Physical Status: ASA3 Severe Disease Anesthetic Plan: GA Bene/Risks/Altern/Consents: Yes HP Complete Prior to Induction: Yes Other Will perform an awake look prior to intubation, can't do SAB secondary to h/o back surgery and associated issues Adán Bernal MD Jan 08, 2017 15:07
[2017-01-08] MEDS ORDERED: Ropivacaine-PF 0.5% 30 mL Inj INFILTRATE ONE (16:23)
--- NOTE | 2017-01-08 17:00 | PCM.ANEP1 ---
Post Anesthesia PACU Phase 1 Assessment Vital Signs Vital Signs Date Time Temp Pulse Resp B/P Pulse Ox O2 Delivery O2 Flow Rate FiO2 01/08/17 16:45 108 16 124/80 94 Simple Mask 10 01/08/17 16:40 37.3 104 17 132/77 93 Simple Mask 10 01/08/17 12:01 37.1 110 20 124/84 91 Room Air 01/08/17 10:57 118 Anesthetic Administered: GA Level of Alertness: Awake, talking BAIG's with Equal Strength: Yes Pain: Yes (6 out of 10 ) Pain Scale Score: 2 Nausea or Vomiting: No CV Function & Hydration Stable: Yes Airway Device: n/a Oxygen Delivery: Simple Mask Lungs: Clear to Auscultation, Diminished Dermatome Level: Full Sensation PACU Phase 2 Assessment Complications: No Follow up Care: N/A Patient Instructions Provided: N/A Adán Bernal MD Jan 08, 2017 17:00
[2017-01-08] MEDS ORDERED: Polyethylene Glycol (PEG) 17 Gm Powder PO PRN (17:10)
[2017-01-08] MEDS ORDERED: Magnesium Hydroxide 10 mL Oral Concentration PO PRN (17:10)
[2017-01-08] MEDS ORDERED: diphenhydrAMINE 25 mg Capsule PO PRN (17:10)
[2017-01-08] MEDS ORDERED: HYDROcodone-APAP 7.5-325 mg Tablet PO PRN (17:10)
[2017-01-08] MEDS ORDERED: Lactated Ringer's 1,000 ML IV ONE (17:20)
--- NOTE | 2017-01-08 17:20 | OP ---
[address] [address] OPERATIVE REPORT PATIENT: EILEEN PATRICK : 1955 MR#: [id number] ADMIT: 01/06/2017 JOB ID: [id number] DATE OF SURGERY: 01/08/2017 SURGEON: Adán Chang DO PREOPERATIVE DIAGNOSIS(ES): Right intertrochanteric hip fracture with stage 4 cancer. POSTOPERATIVE DIAGNOSIS(ES): Right intertrochanteric hip fracture with stage 4 cancer. PROCEDURE: Right intertrochanteric nailing. ANESTHESIA: General. INDICATIONS: The patient is a 61-year-old male with a longstanding history of metastatic cancer who fell at home. Had a mechanical-type fall, injuring his right hip. He was unable to ambulate after the fall. He was admitted to the hospital and orthopedics was consulted. He initially saw Dr. Haines but I was available in the OR today and offered to perform his hip fracture repair and he wished to proceed. We discussed treatment options for this and he wished to proceed with a right hip nailing. We discussed the risks, benefits, and possible complications of surgery. All questions were answered and he agreed to proceed with the procedure. PROCEDURE IN DETAIL: The patient was brought to the operating room. He was given preoperative antibiotic and general anesthetic. Placed comfortably onto the fracture table. The right hip was reduced. Combination traction, adduction, internal rotation. Confirmation of the reduction was made with fluoroscopy. An incision was then made three fingerbreadths above the level of the greater trochanter in line with the femur and dissection was carefully carried down onto the trochanter. A guide pin was placed at the apex of the trochanter and about the midportion of the femur when viewed in the lateral projection. This was over-reamed and then a long ball-tipped guidewire was placed on the femur. The femur was then reamed up to 13.5 and measurement was taken. We elected to place a 360 mm nail with a 12 mm diameter from [employer], the [employer] TFNA. The nail was inserted without difficulty or incident and impacted into position. An incision was then made for the placement of the lag screw and the lag screw guidewire was placed into the center-center position of the femoral head. This was over-reamed and a 95 mm lag screw was inserted. Had excellent fixation and purchase. There was no abnormal feel or appearance to the bone in any way. The lag screw was then locked into position, backed off a half a turn, and the nail insertion device was removed. The distal lock was performed using a perfect [place] type technique and a single distal lock was placed, having excellent fixation in the bone. The wounds were irrigated and then closed with 0 Vicryl to repair the fascia. The subcu was closed with 2-0 Vicryl and the skin was closed with shakira. Naropin was added as an adjunct local anesthetic. Sterile dressings were applied. The patient tolerated the procedure well. BLOOD LOSS: 75 mL POSTOPERATIVE PROTOCOL: Have the patient weightbear to tolerance. Use a walker for ambulation. Will use Lovenox for DVT prophylaxis.
--- NOTE | 2017-01-08 17:20 | NUR ---
Back on Unit Patient arrived back on floor from PACU in stable condition. VSS. A&Ox3. at bedside. Dressing CDI. Reported 8/10 leg pain. 1mg Dilaudid given. Denies nausea at this time. Tolerated clear liquid. Advanced diet. Call light and tray table within reach. Will continue to monitor patient hourly.
--- NOTE | 2017-01-08 17:53 | CONS ---
[address] [address] CONSULTATION REPORT PATIENT: EILEEN PATRICK : 1955 MR#: [id number] ADMIT: 01/06/2017 JOB ID: [id number] PULMONARY CRITICAL CARE CONSULTATION: DATE OF SERVICE: 01/08/2017 REQUESTING CLINICIAN: Petros Patel MD. RECENT FOR CONSULTATION: Abnormal chest imaging. HISTORY OF PRESENT ILLNESS: The patient is a very complex chronically-ill, 61-year-old former smoker. He was admitted two days ago after a ground level fall at home when he sustained a right femoral neck fracture which is awaiting surgical fixation. As part of his evaluation, chest x-ray was obtained demonstrating right-sided densities and a noncontrast chest CT has been obtained. This shows two areas, one within the right upper lobe, and another in the posterior segment of the right lower lobe which have been present on previous imaging. It should be noted, this patient has a remote history of laryngeal squamous cell carcinoma diagnosed in 2008, status post external beam radiation and chemotherapy with nisqually-based agents. Since then he has had several metastases including paratracheal, hepatic and in 2016 a RUL nodule that was proven on biopsy to be metastatic disease. This was a discrete, sharply marginated 1.5 cm and was treated with stereotactic XRT. Later last year, he developed rapidly progressive airspace disease in this region. There was some cavitary change and there was concern for lung abscess given his history at that time of low-grade fevers, leukocytosis, cough, productive of purulent sputum and constitutional symptoms including weight loss and poor appetite. He was treated with a combination of both cefuroxime and metronidazole originally and then later changed to clindamycin which he continues on up until the time of this admission. On this regimen of oral antibiotics, he has had complete resolution of all symptoms of infection and had felt well up until the time of his fall two days ago. 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 He has a history of trauma in this region in the past. Previous imaging has shown a linear, ill-defined infiltrate extending to the chest wall with pleural reaction in this area overlying at least three ribs which appear to be chronically disrupted without clear-cut callus formation or healing of any fracture. The radiologist, in noting these changes on the recent study, worries about a malignant or pathologic process in these three ribs. This area has never been biopsied. In talking to the patient today, he is primarily focused on getting his hip fixed. He asked me to refer all questions about planning of his evaluation and further treatment to his oncologist, Dr. Steward, with whom I spoke later in the day. PAST MEDICAL HISTORY: 1. Squamous cell carcinoma of the larynx status post XRT and nisqually chemo 2008. 1.1 Recurrence right upper lobe, positive on biopsy, status post stereotactic radiotherapy. 1.2 History of paratracheal recurrence of his original primary tumor in April 2011, treated again with external beam therapy and Taxol. 1.3 Additional remote metastases in retrosternal area and liver, status post external beam therapy for these lesions as well. 2. History of multiple pulmonary infiltrates in the past evaluated with biopsy only one of which has ever been proven to represent metastases. 3. Cavitary mass, right upper lobe, felt to represent infected cavitary metastasis of his primary tumor status post prolonged oral antibiotic treatment. 6. Rheumatoid arthritis on methotrexate monotherapy. 7. "COPD", although no physiologic studies are available for quantification. OUTPATIENT MEDICATIONS: Include methotrexate 15 mg p.o. q. week, aspirin 81 mg per day, albuterol sulfate metered dose inhaler two puffs q.4 h. p.r.n., clindamycin 300 mg capsule q.i.d., Breo inhaler one puff daily, thyroxine 137 mcg p.o. daily, omeprazole 20 mg p.o. b.i.d., oxycodone 20 mg p.o. q.i.d. p.r.n., Spiriva inhaler one puff daily. DRUG ALLERGIES: 1. CONTRAST MEDIA. 2. PENICILLIN. 3. IODINE. 4. VANCOMYCIN. FAMILY HISTORY: No family history of recurrent or multiple cancers. 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 Ex smoker. Denies alcohol or recreational drug use. PHYSICAL EXAMINATION: This is a slightly built, well tanned gentleman who appears his stated age, speaks in full sentences, is alert and cooperative. His blood pressure is 125/80, pulse is 110 and regular, respirations are 20, O2 saturation at rest on room air is 91% to 95%. He is and has been afebrile since admission. HEENT exam: Head is normocephalic, atraumatic. Face is symmetric. The trachea is midline. The neck is leathery with changes consistent with previous external beam therapy. There is no discrete mass or adenopathy in the neck or supraclavicular region. Chest shows slightly increased AP dimension. On auscultation, he has good air movement anteriorly with decreased breath sounds at both bases with rales at the right posterior base. No wheezing is heard. Cardiac exam: Distant regular rhythm, soft S1-S2. No murmur, gallop or rub. Abdomen is soft. Upper extremities: Free of cyanosis or clubbing. No active synovitis. No cyanosis. Pulses trace at both radial arteries. DATABASE: As per the electronic medical record. His chemistries show a sodium of 135, potassium 4.6, chloride of 97, total CO2 of 23, BUN of 17, creatinine 0.93, random glucose of 101, and a total calcium of 8.5. Procalcitonin level today was 0.15. CBC shows a hemoglobin of 12, hematocrit 36, WBC of 14, platelets of 128. His pro time is 10.7, INR 1.0 and PTT is 25.6. Chest CT scan of January 07, 2017 in October of this year and then multiple studies going back to August 2015 are personally reviewed. The current study shows interval increase in the right upper lobe process which had decreased substantially, presumably secondary to the prolonged course of oral antibiotics. The right posterior basal process also appears slightly larger than it was on the prior study in October of this year. Furthermore, there is quite a bit of soft tissue reaction and loss of cortical integrity in the midshaft portion of three ribs overlying this area. There is no clear evidence of callus formation or healing of these fractures. IMPRESSION: This is a complex patient with a history of squamous cell carcinoma and numerous remote recurrences including pulmonary, hepatic and paratracheal regions all treated in the past with chemotherapy and radiation. He now has slight increase in the size of his previously biopsy-proven right upper lobe recurrence which responded very well for prolonged oral antibiotics for a presumed abscess complicating his tumor. I share other's concern this likely represents residual tumor as there is no longer any evidence whatsoever of an inflammatory process given his lack of symptoms and almost normal procalcitonin level. The process at his right base has never been sampled as far as I can tell from records and discussion with his other physicians. This once again is also likely to be malignant given the changes in the overlying chest wall and rib suggesting a pathologic process. He is certainly at risk for any number of inflammatory diseases including atypical opportunistic infections given the fact he is immunocompromised both from his prior history of solid tumor, chemotherapy, external beam treatment and ongoing use of methotrexate for control of his rheumatoid arthritis. These include invasive fungal species and mycobacteria. RECOMMEND: Offer patient tissue sampling of the right basilar process if he is interested as he appears to have caused pathologic fracture and external beam therapy might halt or even partly reverse this process. Otherwise, I am not sure that additional treatment to the right upper lobe process is needed at this time as he seems to be asymptomatic from this and rather it could be simply followed with serial imaging. In either case, there is no urgent need for evaluation of this, but rather the primary concern should be repair of his hip fracture. If he should develop any evidence of inflammatory process such as fevers, leukocytosis or cough, bronchoscopic sampling of both areas but particularly the previously uninvestigated right lower lobe would be a rather simple process with bronchoalveolar lavage. There would not be any role for bronchoscopic tissue sampling of the right lower lobe process without the ability to perform electromagnetic navigational bronchoscopy, given its rather peripheral location. Thank you for requesting pulmonary critical care consultation. We will continue to follow with you through the remainder of his hospitalization. ELLIOTT
[2017-01-08] MEDS: Sodium Chloride LOK Flush 10 mL Syringe IV SCH (20:00)
[2017-01-08] MEDS: Senna-Docusate 8.6-50 mg Tablet PO SCH (20:03)
[2017-01-08 21:02] LABS: APPEARANCE,URINE CLOUDY (CLEAR,HAZY); COLOR,URINE DARK YELLOW (YELLOW); OCCULT BLOOD,URINE LARGE (NEGATIVE); PH,URINE 5.5 (5.0-8.0); UROBILINOGEN,URINE NORMAL (NORMAL)
[2017-01-08] MEDS: CeFAZolin Inj 2 GM in IV Premix 1 EACH IV SCH (23:14)
[2017-01-09] VITALS (9 sets, daily range): BP systolic 92–104; BP diastolic 61–68; PULSE 62–114; RESP 16–20; O2SAT 89–100
[2017-01-09] MEDS ORDERED: CeFAZolin Inj 2 GM in IV Premix 1 EACH IV SCH (00:30)
[2017-01-09] MEDS: 0.9% Sodium Chloride 1,000 ML IV SCH ×3 (00:45→18:06)
--- NOTE | 2017-01-09 01:28 | CONS ---
[address] [address] CONSULTATION REPORT PATIENT: EILEEN PATRICK : 1955 MR#: [id number] ADMIT: 01/06/2017 JOB ID: [id number] DATE OF SERVICE: 01/08/2017 REFERRING PROVIDER: You Ware MD. REASON FOR REFERRAL: This is a patient well known to Oncology Clinic, who was admitted with an accidental right hip fracture, not pathologic, and suspicion of recurrence of cancer in his lung and possibly bone as well. HISTORY OF PRESENT ILLNESS: 1. 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 He also has osteoporosis possibly related to elevated , also past history of steroid and methotrexate for rheumatoid arthritis. 2. The patient has a long history of head and neck squamous carcinoma treated for multiple oligometastases over the years, most recently pulmonary metastases, now with concern about recurrence of right upper lobe mass which has been treated an abscess as well, see comments below, also evidence for pelvic metastatic disease on CT and plain film imaging. 3. 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 4. Rheumatoid arthritis treated with prednisone in the past. Currently, on methotrexate. 5. 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 OTHER MEDICAL HISTORY: Please see my progress note on November 06, 2016, for details on his cancer treatment; his original squamous carcinoma of the vocal cord was a T4 N2 MX, treated with radiation and chemotherapy August 2008, and subsequently has had multiple treatments for oligometastases with stability of his condition; he was able to work up until last year and was thinking of going back to work before his fall. He is being followed by Dr. Patel for cavitary mass in the right upper lobe in the area of prior radiation for recurrent cancer; appears to be infectious in nature; there is concern about recurrence of cancer in that area now. There is also concern about recurrence of cancer in the right lower lobe with a pleural base mass and a lower lobe infiltrate which may be amenable to biopsy. In terms of possible bone metastases in the process of having his fracture evaluated, a plain film of the right hip and pelvis showed several lytic appearing lesions in the bone, and a CT of the hip on January 07, 2017, showed mildly displaced comminuted right intertrochanteric fracture and suspicious for left posterior iliac wing metastasis. It should be noted that the patient has a unit in his spine, Dr. Mishra is responsible for that, and although there was willingness to perform an MRI of the pelvis in [place], it has been considered too dangerous more recently here; and therefore, if he has to have an MRI will have to consult with Dr. Mishra of Neurosurgery in [place]. Subjectively, the patient is now several hours postoperatively and is resting in bed comfortably. Currently, his pain is under control and he feels reasonably comfortable. 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 OBJECTIVE: His vital signs show a temperature of 37.0, pulse 124, respiratory rate 18, blood pressure 97/64, pulse ox 94% at 21:00. Head and neck: Close cropped hair. Pupils equal, round, reactive without icterus. Oral mucosa appears unremarkable. Respiratory: Clear to auscultation anteriorly and laterally. Cardiac: Rhythm is regular without murmur or peripheral edema. Abdomen: Soft, nontender. No masses or organomegaly. Extremities: He is status post right hip repair with pinning and he has no peripheral edema. LABORATORY VALUES: The white count is 14.2, hemoglobin 12.0, hematocrit 36.6, and platelets 128, with 82.4% neutrophils. BUN 17, creatinine 0.93, electrolytes normal, glucose 101. His calcium was 8.5. ALT, AST, alkaline phosphatase, bilirubin were normal. ASSESSMENT AND RECOMMENDATIONS: This is a now 61-year-old man with a long history dating back to 2008 of head and neck cancer with multiple effective treatments for oligometastases, who now presents with a mechanical hip fracture, not appearing to be metastatic or pathologic in nature. In the process or workup, both his lung lesions and his bone lesions are suspicious for metastases. I have asked Dr. Lopez to review the CT of the chest to determine whether the right upper lobe mass is in the field, it likely is. We have also considered a biopsy of the right lower lobe area to determine if that is a recurrence of tumor which could be radiated separately. Regarding the possibility of bone metastases, the patient wishes to be aggressive and he has never had bone metastases before; and therefore, he would like to have biopsy of the iliac lesion if this is technically feasible, and either radiation or systemic therapy depending on what the recommendations are. The evaluation for metastatic disease is not urgent and can wait until he is well enough, and preferably out of rehab for his hip fracture. At that point, we can decide whether or not an MRI can be done, whether a biopsy of the iliac area can be done, and whether biopsy of the right lower lobe lesion can be done, and then treatment plan can be developed if any malignancy is found. The patient has had a surprisingly long run with intermittently occurring oligometastases from his prior squamous head and neck cancer.
--- NOTE | 2017-01-09 02:59 | NUR ---
OXYGENATION Pt continues to be on oxymask at 2L with cpox. When administering medications, pt takes off oxymask, O2 drops down to low 80s. Placed oxymask back on, O2 slowly rises to low 90s. RN encouraged pt to keep oxygen on. At 0302, while pt asleep, O2 at 98% on 2L, titrated down to 1L. Now at 97%. Will continue to monitor and try to d/c oxygen when appropriate.
[2017-01-09] MEDS: HYDROmorphone 1 mg/mL Inj IVPUSH PRN ×5 (05:31→22:22)
[2017-01-09 05:38] LABS: BASOPHILS % (AUTO) 0.1 % (0-3); EOSINOPHILS % (AUTO) 0.1 % (0-5); MONOCYTES % (AUTO) 3.4 % (4-12); Mean Corpuscular Hemoglobin 31.3 pg (27.0-35.0); Mean Corpuscular Volume 95.9 fL (81-100); NEUTROPHILS % (AUTO) 93.9 % (40-74); Platelet Count 101 bil/L (150-400)
[2017-01-09] MEDS: CeFAZolin Inj 2 GM in IV Premix 1 EACH IV SCH (06:43)
[2017-01-09] MEDS: Albuterol-Ipratropium 3 mL Inhalation Solution NEB SCH ×2 (07:35→22:02)
[2017-01-09] MEDS: Budesonide 0.5 mg/2 mL Inhalation Solution NEB SCH ×2 (07:35→20:30)
[2017-01-09] MEDS: Sodium Chloride LOK Flush 10 mL Syringe IV SCH ×2 (08:30→15:43)
--- NOTE | 2017-01-09 08:38 | PCM.PNORTH ---
Subjective Date of Service: Jan 09, 2017 Visit Information: Reason for Visit Intertrochanteric Fracture Of R Hip,Glf Surgery/Surgery Date R HIP FEMORAL NAIL 01/08/17 Post-Op Day # 1 Date of Admission: Jan 06, 2017 at 23:26 Hospital Day # Subjective Patient complains of incisional pain. The pain from the hip fracture is much better. Pain Management: PO Objective Exam Objective Patient is seen sitting up in bed. He is on oxygen. Vital Signs and I/O Vital Sign - Last Date Time Temp Pulse Resp B/P Pulse Ox O2 Delivery O2 Flow Rate FiO2 01/09/17 08:13 36.4 104 18 104/65 100 OxyMask 2.00 Intake and Output 01/08/17 01/08/17 01/09/17 Cumulative From/Thru 15:00 23:00 07:00 01/06/17 22:00 - 01/09/17 06:46 Intake Total 1944 ml 100 ml 1712 ml 4219 ml Output Total 475 ml 900 ml 2475 ml Balance 1944 ml -375 ml 812 ml 1744 ml Intake Oral 0 ml 500 ml 500 ml IV Total 1944 ml 100 ml 1212 ml 3719 ml Output Urine Total 400 ml 900 ml 2400 ml Stool Total 0 ml Estimated Blood Loss 75 ml 75 ml # Bowel Movements 0 0 0 Lab & Micro Results Laboratory Tests Test 01/08/17 14:10 01/08/17 20:54 01/09/17 05:25 Urine Color Dark yellow (YELLOW) Urine Appearance Cloudy (CLEAR,HAZY) Urine pH 5.5 (5.0-8.0) Urine Specific [place] 1.020 (1.003-1.035) Urine Protein 30mg/dL (NEG,TRACE) Urine Glucose (UA) Negativemg/dL (NEGATIVE) Urine Ketones 15mg/dL (NEGATIVE) Urine Occult Blood Large (NEGATIVE) Urine Nitrite Negative (NEGATIVE) Urine Bilirubin Negative (NEGATIVE) Urine Urobilinogen Normalmg/dL (NORMAL) Urine Leukocyte Esterase Trace (NEGATIVE) Urine RBC 11-50/hpf (0-2) Urine WBC 0-5/hpf (0-5) Urine Epithelial Cells Occasional/hpf (NONE-MOD) Urine Crystals None seen (NONE SEEN) Urine Bacteria None/hpf (NONE-FEW) Urine Hyaline Casts None/lpf (NONE) Urine Granular Casts None seen (NONE SEEN) Urine Waxy Casts None seen (NONE SEEN) Urine Red Blood Cell Casts None seen (NONE SEEN) Urine White Blood Cell Casts None seen (NONE SEEN) Urine Mucus None seen (None Seen) Urine Trichomonas None seen (NONE SEEN) Urine Yeast None (NONE SEEN) Urinalysis Comment None White Blood Count 13.4th/mm3 (3.8-10.1) Red Blood Count 3.19mil/mm3 (4.40-5.80) Hemoglobin 10.0g/dL (13.8-17.2) Hematocrit 30.6% (41.0-50.0) Mean Corpuscular Volume 95.9fL (81-100) Mean Corpuscular Hemoglobin 31.3pg (27.0-35.0) Mean Corpuscular Hemoglobin Concent 32.7% (32.0-37.0) Red Cell Distribution Width 14.8% (12.3-15.4) Platelet Count 101bil/L (150-400) Neutrophils (%) (Auto) 93.9% (40-74) Lymphocytes (%) (Auto) 2.3% (14-46) Monocytes (%) (Auto) 3.4% (4-12) Eosinophils (%) (Auto) 0.1% (0-5) Basophils (%) (Auto) 0.1% (0-3) Sodium Level 131mEq/L (134-144) Potassium Level 4.6mEq/L (3.5-5.2) Chloride Level 97mEq/L (97-108) Carbon Dioxide Level 21mmol/L (18-29) Blood Urea Nitrogen 17mg/dL (8-27) Creatinine 0.77mg/dL (0.76-1.27) Estimat Glomerular Filtration Rate 108mL/min (>59) Glucose Level 119mg/dL (60-99) Calcium Level 7.2mg/dL (8.5-10.1) Result Diagram: 01/09/1752401/09/17524 General Appearance: Alert, Oriented X3, Cooperative, No Acute Distress Extremities: Distal Pulses Palpable, No Compartment Syndrom Noted, Thigh & Calf Soft/Nontender Postop Sensory Motor: Distal Motor Intact, Movement in Toes, Distal Sensation Intact, NVI Distally SURGICAL WOUND : Wound Location/Description Right lower extremity: Surgical dressing is clean, dry and intact Incision General Appearance: No Direct Observation Catheters: Urethral 2 Way [place] Assessment & Plan Impression POD #1 status post right hip IM nail Problems: Plan Weightbearing: Weightbearing as tolerated with walker DVT prophylaxis: Lovenox 40 mg subcutaneous 3 weeks followed by aspirin 325 mg twice a day 3 weeks Physical therapy for transfers, progressive ambulation, therapeutic exercise Wound care: PA will change dressing on postop day 2 DC [place] catheter today Follow-up plan: In 2 weeks at [facility] with PA for wound check and at [address] Chang with x-rays Pain Management: Dilaudid IV, oxycodone 20 mg 4 times a day VTE Prophylaxis: Sub-Q Heparin (Unfractionated), Sub-Q Enoxaparin, SCDs Resuscitation Status: CPR: Attempt Resuscitation KilldeerJeannie sanchez PA-C Jan 09, 2017 08:38
[2017-01-09] MEDS: Pantoprazole 20 mg ER24 Tablet PO SCH ×2 (08:45→20:58)
[2017-01-09] MEDS: Fluticasone-Salmeterol 500-50 Inhaler INHALATION SCH ×2 (08:47→21:00)
[2017-01-09] MEDS: Senna-Docusate 8.6-50 mg Tablet PO SCH ×2 (08:47→20:30)
[2017-01-09] MEDS: Tiotropium 18mcg/Cap 5 Capsule Inhaler Kit INHALATION SCH (08:47)
--- NOTE | 2017-01-09 10:01 | NUR ---
Hip pain PRN Dilaudid give as ordered for pain to right hip 11/19 with effective results. per monitor tach," Sinus tachycardia 117" and hospitalist aware, no new orders received. patient asymptomatic and watching TV.
[2017-01-09] MEDS: 0.9% Sodium Chloride 250 ML IV SCH (10:26)
--- NOTE | 2017-01-09 15:38 | NUR ---
Social Work- Continued D/C Planning Data: EMR reviewed. Pt is on day 3 of hospitalization. Pt discussed in multidisciplinary rounds, pt is POD 1. PT has evaluated pt, recommending SNF. SNF order received. SW met with pt and at bedside regarding SNF recommendation and order. Pt is agreeable. Pt requested referrals to [facility] and [facility]. Pt and unsure of order of preference. wants it to be [facility], pt wants [facility]. Paperwork in patient's chart. PASRR in folder. MUSIC SPECIALIST requested to make referrals. SW will continue to follow. Assessment: Pt for whom SNF is medically indicated Plan: Referrals to [facility] in [place] and [facility] in [place]. Paperwork in patient's chart. PASRR in folder. SW will continue to follow. CHAI Coyle
--- NOTE | 2017-01-09 15:52 | NUR ---
CUSTODIAL TRANSFER : Faxed referral to [facility] this is patient preference. Also gave access and faxed facesheet to [address] per TECHNICAL OPERATIONS MANAGER and MD orders.
--- NOTE | 2017-01-09 15:52 | NUR ---
constipation Last BM on Saturday per patient . PRN Senna given as ordered for constipation. Bowel tones present all four quadrants. continue to monitor.
--- NOTE | 2017-01-09 16:01 | PCM.PNMED ---
Subjective Date of Service Jan 09, 2017 Subjective Patient is in a bed, has no complaints. Exam Vital Signs Vital Sign - Last Date Time Temp Pulse Resp B/P Pulse Ox O2 Delivery O2 Flow Rate FiO2 01/09/17 15:44 Supplement Oxygen 01/09/17 12:56 36.8 62 18 99/67 97 01/09/17 08:13 2.00 Intake and Output 01/08/17 01/08/17 01/09/17 Cumulative From/Thru 15:00 23:00 07:00 01/06/17 22:00 - 01/09/17 06:46 Intake Total 1944 ml 100 ml 1712 ml 4219 ml Output Total 475 ml 900 ml 2475 ml Balance 1944 ml -375 ml 812 ml 1744 ml Intake Oral 0 ml 500 ml 500 ml IV Total 1944 ml 100 ml 1212 ml 3719 ml Output Urine Total 400 ml 900 ml 2400 ml Stool Total 0 ml Estimated Blood Loss 75 ml 75 ml # Bowel Movements 0 0 0 Exam PHYSICAL EXAM: GENERAL: Alert, not in distress, cooperative HEAD: atraumatic, normocephalic EYES: MAXIM, EOMI, anicteric, able to fully open and close eyelids SKIN: Skin color normal, turgor normal. No visible rashes or lesions. EAR, NOSE, MOUTH, THROAT: Lips, oral mucosa, tongue are moist, pink, no lesions. Ears normal appearance, no lesions. NECK: supple ROM normal. RESPIRATORY: Lungs clear to auscultation. Good diaphragmatic excursion. CARDIAC: normal S1 and S2; no rubs, murmurs, or gallops; regular rate and rhythm ABDOMEN: Abdomen soft, non-tender. BS normal. No masses or organomegaly. MUSCULOSKELETAL: ROM limited in broken hip, muscles are not tender EXTREMITIES: no pitting edema in LE, no new deformities or skin discoloration. NEURO: Alert, oriented X 3, Sensation grossly intact., Cranial nerves II-XII intact, Grossly normal motor function. PULSES: 2+ radial, 2+ carotid REVIEW OF SYSTEMS: GENERAL: no malaise, no fevers., SEE HPI HEENT: Negative for frequent or significant headaches All other reviewed and negative other than HPI. IVs and Medications Medications Reviewed: Medications were reviewed in detail Lab and Diagnostics Result Diagram: 01/09/17 0525 01/09/17 0525 X-Rays, CTs and MRIs CT HIP 1. Mildly displaced comminuted right intratrochanteric proximal femur fracture. 2. No evidence of underlying right femoral metaphysis by CT. MRI with and without intravenous contrast would be more sensitive for detection of such. 3. Findings suspicious for left posterior iliac wing metastasis. 4. Distended urinary bladder. XR LEG IMPRESSION: Stable appearance of minimally displaced right intratrochanteric hip fracture. Assessment & Plan Mr. 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 Initial imaging revealed a right intratrochanteric fracture. Patient was admitted for evaluation and treatment of acute right intertrochanteric fracture. Right intertrochanteric hip fracture, s/p surgery R HIP FEMORAL NAIL 01/08/17 - secondary to GLF, mechanical; pt reports shoelace as etiology, no assoc KEARNS, vision changes, syncope, chest pain, SOB - Imaging revealed right sided intertrochanteric fracture Plan - Pain control: home dosing + dilaudid IV pushes prn pain - PT/OT Abscess of RLL without PNA, chronic, presumed stable - ID Dr. 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 Steward - CT hip shows some possible mets to the left iliac crest Plan - patient will need biopsy Leukocytosis - mild, stable - May be secondary stress response, PCT mildly elevated - Continue to monitor, pt denied any preceding illness to GLF - c/w antibiotics as per ID recommendations. Small bowel obstruction status post ostomy placement, chronic, presumed stable - Please provide patient ostomy bag changes as needed COPD - stable - Duonebs BID + budesonide BID + accunebs q2h prn - Resume other home meds as appropriate when necessary DVT: Orthosurgery recommended Lovenox 40 mg subcutaneous 3 weeks followed by aspirin 325 mg twice a day 3 weeks Code: FULL CODE GI Prophylaxis: Proton Pump Inhibitor VTE Prophylaxis: Sub-Q Heparin (Unfractionated), Sub-Q Enoxaparin, SCDs VTE Mechanical Devices: Intermittant Pneumatic CD Resuscitation Status: CPR: Attempt Resuscitation Oscar Qureshi MD Jan 09, 2017 16:01 Oscar Qureshi MD Jan 09, 2017 16:01
[2017-01-09] MEDS ORDERED: Magnesium Hydroxide 10 mL Oral Concentration PO PRN (16:34)
[2017-01-10] VITALS (10 sets, daily range): BP systolic 91–106; BP diastolic 63–73; PULSE 54–146; RESP 16–18; O2SAT 92–100
--- NOTE | 2017-01-10 01:56 | PROG NOTE ---
[address] [address] PROGRESS NOTE PATIENT: EILEEN PATRICK : 1955 MR#: [id number] ADMIT: 01/06/2017 JOB ID: [id number] DATE: 01/09/2017 HOSPITAL ROUNDS: This is a 61-year-old man who I was asked to see yesterday regarding his history of non-small cell lung cancer with metastases in the setting of a recent right hip fracture. He required internal fixation with pinning yesterday and has done well postoperatively. The main issue for Oncology is the fact that he has been treated for multiple oligometastases from squamous cell carcinoma of the head and neck, which was originally diagnosed and treated in 2008, eight years ago. He has suspicious lesions in his lung, pleural space on the right and pelvis. I reviewed these images with the patient, in particular the pleural thickening near the site of a previously thought to be traumatic rib fracture in the right posterior chest, a second lesion in the right upper lung which was treated as an abscess and finally multiple lytic-appearing lesions on CT and plain film in the bony pelvis. See comments below. Subjectively, the patient states that he is doing better. He was up and around and receiving physical therapy. He has a good appetite. His pain is well controlled, he states. PHYSICAL EXAMINATION: His vital signs show a temp of 36.7, pulse 114, respiratory rate 16, blood pressure 92/65, pulse ox 89% on room air. Head and neck: Normal skin and hair. Pupils equal, round and reactive, without icterus. Oral and oropharyngeal mucosa unremarkable. Neck is supple, without thyromegaly or masses. Lung nazario are clear to auscultation and percussion. Cardiac: Rhythm is regular, without murmur, gallop, JVD or peripheral edema. Abdomen: Soft and nontender, without masses or organomegaly or ascites. He has a colostomy in the left lower abdomen. Extremities: He is laying in bed comfortably with postoperative right hip. He also has an absent left elbow joint secondary to prior injury. LABORATORY VALUES: The white count is 13.4, hemoglobin 10.0, hematocrit 30.6, platelets 101. The BUN and creatinine are 17 and 0.77. IMAGING: Review of the CT pelvis shows mildly displaced comminuted right intertrochanteric proximal femur fracture and findings suspicious for left posterior iliac wing metastases with at least one 15 mm diameter lytic defect within the posterior iliac wing. I reviewed this with the patient. There are at least three or four additional lytic lesions and these are described as well corticated lucencies within the iliac wings. The chest CT shows bilateral what is thought to be pathologic rib fractures, a right lower lobe density and an increase in size of the right upper lobe malignancy. 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 He was previously treated with combination chemotherapy and SBRT or IMRT radiation therapy and, more recently, with radiation therapy only to a right upper lobe lesion. The patient wishes to be aggressive about managing these because he has gone now eight years with metastatic disease and had good results and has been able to work up until recently with this plan. The discussion, I recommended, be held after his discharge and that we could certainly biopsy both the iliac wing lesion and the right lower chest lesion and that, if they are symptomatic, radiation therapy could be administered. We will have to develop a more comprehensive management plan and a PET-CT scan would be helpful in determining the extent of his metastatic disease. The last PET-CT scan he had was in July 2016, showing FDG uptake in the right upper lobe mass and no other sites that were very convincing for metastatic disease.
[2017-01-10] MEDS: Sodium Chloride LOK Flush 10 mL Syringe IV SCH ×3 (02:34→16:30)
[2017-01-10] MEDS: HYDROmorphone 1 mg/mL Inj IVPUSH PRN ×2 (02:38→06:28)
[2017-01-10] MEDS: 0.9% Sodium Chloride 1,000 ML IV SCH ×3 (03:25→20:54)
--- NOTE | 2017-01-10 03:42 | NUR ---
Lowery Pt. refused lowery catheter to be taken out during this shift. Education given on risks of keeping lowery in such as UTIs. Pt. wants lowery to be taken out after PT later today.
[2017-01-10] MEDS: Budesonide 0.5 mg/2 mL Inhalation Solution NEB SCH ×2 (07:40→20:30)
[2017-01-10] MEDS: Albuterol-Ipratropium 3 mL Inhalation Solution NEB SCH ×2 (07:40→20:30)
[2017-01-10] MEDS: Senna-Docusate 8.6-50 mg Tablet PO SCH ×2 (08:32→20:40)
[2017-01-10] MEDS: Tiotropium 18mcg/Cap 5 Capsule Inhaler Kit INHALATION SCH (08:33)
[2017-01-10] MEDS: Pantoprazole 20 mg ER24 Tablet PO SCH ×2 (08:33→20:41)
[2017-01-10] MEDS: Fluticasone-Salmeterol 500-50 Inhaler INHALATION SCH ×2 (08:34→20:30)
--- NOTE | 2017-01-10 09:07 | PCM.PNORTH ---
Subjective Date of Service: Jan 10, 2017 Visit Information: Reason for Visit Intertrochanteric Fracture Of R Hip,Glf Surgery/Surgery Date R HIP FEMORAL NAIL 01/08/17 Post-Op Day # 2 Date of Admission: Jan 06, 2017 at 23:26 Hospital Day # Subjective Patient reports he is doing better today. He refused to have the Upton catheter removed yesterday. He wanted to wait until after PT this morning. yesterday he walked in the room a few steps Pain Management: PO Objective Exam Objective Patient was seen lying in bed Vital Signs and I/O Vital Sign - Last Date Time Temp Pulse Resp B/P Pulse Ox O2 Delivery O2 Flow Rate FiO2 01/10/17 07:45 36.8 91 18 96/68 100 OxyMask 2.00 Intake and Output 01/09/17 01/09/17 01/10/17 Cumulative From/Thru 15:00 23:00 07:00 01/06/17 22:00 - 01/10/17 06:23 Intake Total 2059 ml 993 ml 7271 ml Output Total 1200 ml 950 ml 4625 ml Balance 859 ml 43 ml 2646 ml Intake Oral 800 ml 600 ml 1900 ml IV Total 1259 ml 393 ml 5371 ml Output Urine Total 1200 ml 950 ml 4550 ml Stool Total 0 ml 0 ml Estimated Blood Loss 75 ml # Bowel Movements 0 0 Result Diagram: 01/09/17 0525 01/09/17 0525 General Appearance: Alert, Oriented X3, Cooperative, No Acute Distress Extremities: Distal Pulses Palpable, No Compartment Syndrom Noted, Thigh & Calf Soft/Nontender Postop Sensory Motor: Distal Motor Intact, Distal Sensation Intact, NVI Distally SURGICAL WOUND : Wound Location/Description Right hip: Surgical dressing is removed. There is mild serous drainage from the most proximal wound on the dressing. There is no erythema. Wounds are closed with shakira. There is swelling around the proximal wound. 's were cleansed with hydrogen peroxide and dressed with 4 x 4 gauze and Island dressing over the most proximal wound, and 2 x 2 gauze and Tegaderm over the middle and distal wounds. Catheters: Urethral 2 Way Upton (DC this morning after therapy) Assessment & Plan Impression POD #2 status post right hip IM nail Problems: Plan Weightbearing: Weightbearing as tolerated with walker DVT prophylaxis: Lovenox 40 mg subcutaneous 3 weeks followed by aspirin 325 mg twice a day 3 weeks Physical therapy for transfers, progressive ambulation, therapeutic exercise Wound care: Dressing change by VELIA today to Island dressing over the proximal wound and 2 x 2 gauze and Tegaderm over the middle and distal wounds DC Upton catheter after physical therapy this morning Follow-up plan: In 2 weeks at [facility] with PA for wound check and at [address] Chang with x-rays Pain Management: Oxycodone 20 mg 4 times a day VTE Prophylaxis: Sub-Q Heparin (Unfractionated), Sub-Q Enoxaparin, SCDs Resuscitation Status: CPR: Attempt Resuscitation Jeannie Bagley PA-C Jan 10, 2017 09:07
[2017-01-10] MEDS: hydrOXYzine Pamoate 25 mg Capsule PO PRN ×2 (09:47→17:00)
[2017-01-10] MEDS: 0.9% Sodium Chloride 250 ML IV SCH (10:26)
--- NOTE | 2017-01-10 10:32 | PCM.PNMED ---
Subjective Date of Service Jan 10, 2017 Subjective Patient feels better today, complaining of hip pain after the surgery which is also better. Hemoglobin decreased to points, from 12 to10. Patient has mild hyponatremia Exam Vital Signs Vital Sign - Last Date Time Temp Pulse Resp B/P Pulse Ox O2 Delivery O2 Flow Rate FiO2 01/10/17 07:45 36.8 91 18 96/68 100 OxyMask 2.00 Intake and Output 01/09/17 01/09/17 01/10/17 Cumulative From/Thru 15:00 23:00 07:00 01/06/17 22:00 - 01/10/17 06:23 Intake Total 2059 ml 993 ml 7271 ml Output Total 1200 ml 950 ml 4625 ml Balance 859 ml 43 ml 2646 ml Intake Oral 800 ml 600 ml 1900 ml IV Total 1259 ml 393 ml 5371 ml Output Urine Total 1200 ml 950 ml 4550 ml Stool Total 0 ml 0 ml Estimated Blood Loss 75 ml # Bowel Movements 0 0 Exam PHYSICAL EXAM: GENERAL: Alert, not in distress HEAD: atraumatic, normocephalic, no bruises. EYES: MAXIM, EOMI, anicteric, able to fully open and close eyelids SKIN: Skin color normal, turgor normal. No visible rashes or lesions. EAR, NOSE, MOUTH, THROAT: Lips, oral mucosa, tongue are moist, pink, no lesions. ns. NECK: supple ROM normal. RESPIRATORY: Lungs clear to auscultation. Good diaphragmatic excursion. CARDIAC: normal S1 and S2; no rubs, murmurs, or gallops; regular rate and rhythm ABDOMEN: Abdomen soft, non-tender. BS normal. No masses or organomegaly. MUSCULOSKELETAL: ROM limited in broken hip, muscles are not tender EXTREMITIES: no pitting edema in LE, no new deformities or skin discoloration. NEURO: Alert, oriented X 3, Cranial nerves II-XII intact, Grossly normal motor function. PULSES: 2+ radial, 2+ carotid REVIEW OF SYSTEMS: GENERAL: no malaise, no fevers., SEE HPI HEENT: Negative for frequent or significant headaches All other reviewed and negative other than HPI. IVs and Medications Medications Reviewed: Medications were reviewed in detail Lab and Diagnostics Result Diagram: 01/09/1725 01/09/17524 X-Rays, CTs and MRIs CT HIP 1. Mildly displaced comminuted right intratrochanteric proximal femur fracture. 2. No evidence of underlying right femoral metaphysis by CT. MRI with and without intravenous contrast would be more sensitive for detection of such. 3. Findings suspicious for left posterior iliac wing metastasis. 4. Distended urinary bladder. XR LEG IMPRESSION: Stable appearance of minimally displaced right intratrochanteric hip fracture. Assessment & Plan Mr. 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 Initial imaging revealed a right intratrochanteric fracture. Patient was admitted for evaluation and treatment of acute right intertrochanteric fracture. Right intertrochanteric hip fracture, s/p surgery R HIP FEMORAL NAIL 01/08/17 - Stable Plan - Pain control: home dosing + dilaudid IV pushes prn pain - PT/OT Hyponatremia - Mild - Monitor Abscess of RLL without PNA, chronic, presumed stable - ID Dr. Patel on the case - c/w current meds Rheumatoid arthritis, chronic, presumed stable - Stable - c/w home meds Stage IV squamous cell carcinoma of head and neck status post radiation and chemotherapy - stable - Oncologist: Dr. Steward - CT hip shows some possible mets to the left iliac crest Plan - patient will need biopsy after discharge - Oncology will follow with the patient Leukocytosis - stable - May be secondary stress response, PCT mildly elevated - Continue to monitor - c/w antibiotics as per ID recommendations. History of Small bowel obstruction, status post ostomy placement, chronic, presumed stable -Stable COPD - stable -Continue respiratory therapy DVT: Orthosurgery recommended Lovenox 40 mg subcutaneous 3 weeks followed by aspirin 325 mg twice a day 3 weeks Code: FULL CODE GI Prophylaxis: Proton Pump Inhibitor VTE Prophylaxis: Sub-Q Heparin (Unfractionated), Sub-Q Enoxaparin, SCDs VTE Mechanical Devices: Intermittant Pneumatic CD Resuscitation Status: CPR: Attempt Resuscitation Oscar Qureshi MD Jan 10, 2017 10:32
--- NOTE | 2017-01-10 11:26 | PCM.PNMED ---
Subjective Date of Service Jan 10, 2017 Subjective I met with patient in the evening of 01/09. He was comfortable and on room air. His was at his bedside. We reviewed the findings of his recent CT and my recommendations. I noted Dr. Steward's plan to defer attempts at tissue biopsy of the 2 discrete Rt. lung lesions until later and this is entirely reasonable as they have both been present for months. I offered bronchoscopy with BAL if he should develop any symptoms of infections such as fever, chills, cough or change in sputum amount or character. Pulmonary consult will sign off for now. Please reconsult as needed. Exam Vital Signs Vital Sign - Last Date Time Temp Pulse Resp B/P Pulse Ox O2 Delivery O2 Flow Rate FiO2 01/10/17 10:59 146 01/10/17 07:45 36.8 18 96/68 100 OxyMask 2.00 Intake and Output 01/09/17 01/09/17 01/10/17 Cumulative From/Thru 15:00 23:00 07:00 01/06/17 22:00 - 01/10/17 06:23 Intake Total 2059 ml 993 ml 7271 ml Output Total 1200 ml 950 ml 4625 ml Balance 859 ml 43 ml 2646 ml Intake Oral 800 ml 600 ml 1900 ml IV Total 1259 ml 393 ml 5371 ml Output Urine Total 1200 ml 950 ml 4550 ml Stool Total 0 ml 0 ml Estimated Blood Loss 75 ml # Bowel Movements 0 0 IVs and Medications Medications Reviewed: Medications were reviewed in detail Lab and Diagnostics Result Diagram: 01/09/17 0525 01/09/17 0525 X-Rays, CTs and MRIs CT HIP 1. Mildly displaced comminuted right intratrochanteric proximal femur fracture. 2. No evidence of underlying right femoral metaphysis by CT. MRI with and without intravenous contrast would be more sensitive for detection of such. 3. Findings suspicious for left posterior iliac wing metastasis. 4. Distended urinary bladder. XR LEG IMPRESSION: Stable appearance of minimally displaced right intratrochanteric hip fracture. Assessment & Plan IMP This is a complex patient with a history of squamous cell carcinoma and numerous remote recurrences including pulmonary, hepatic and paratracheal regions all treated in the past with chemotherapy and radiation. He now has slight increase in the size of his previously biopsy-proven right upper lobe metastasis which has been treated with CyberKnife and which responded very well to prolonged oral antibiotics for a presumed abscess complicating his irradiated tumor. I share other's concern that this now enlarging density likely represents residual tumor as there is no longer any evidence whatsoever of an inflammatory process given his lack of symptoms and almost normal procalcitonin level. The process at his right base has never been sampled as far as I can tell from records and discussion with his other physicians. This once again is also likely to be malignant given the changes in the overlying chest wall and rib suggesting a pathologic process. He is certainly at risk for any number of inflammatory diseases including atypical opportunistic infections given the fact he is immunocompromised both from his prior history of solid tumor, chemotherapy, external beam treatment and ongoing use of methotrexate for control of his rheumatoid arthritis. These include invasive fungal species and mycobacteria. REC Tissue dx of RLL process with CT guided bx per his Oncologist Bronch/BAL if he should develop signs/sx of new/recurrent infectio. GI Prophylaxis: Proton Pump Inhibitor VTE Prophylaxis: Sub-Q Heparin (Unfractionated), Sub-Q Enoxaparin, SCDs VTE Mechanical Devices: Intermittant Pneumatic CD Resuscitation Status: CPR: Attempt Resuscitation Po Forbes MD Jan 10, 2017 11:26 - Continue to monitor - c/w antibiotics as per ID recommendations. History of Small bowel obstruction, status post ostomy placement, chronic, presumed stable -Stable COPD - stable -Continue respiratory therapy DVT: Orthosurgery recommended Lovenox 40 mg subcutaneous 3 weeks followed by aspirin 325 mg twice a day 3 weeks Code: FULL CODE GI Prophylaxis: Proton Pump Inhibitor VTE Prophylaxis: Sub-Q Heparin (Unfractionated), Sub-Q Enoxaparin, SCDs VTE Mechanical Devices: Intermittant Pneumatic CD Resuscitation Status: CPR: Attempt Resuscitation Po Forbes MD Jan 10, 2017 11:26
--- NOTE | 2017-01-10 12:26 | NUR ---
Upton catheter Pt refuses to have Upton catheter removed until PT worked with him today. All risks explained to pt. Pt continues to refuse having Upton removed. Upton catheter removed immediately after PT worked with Pt. No issues noted. Yellow clear urine noted in Upton prior to removing. Care continues
--- NOTE | 2017-01-10 13:08 | PROG NOTE ---
[address] [address] PROGRESS NOTE PATIENT: EILEEN PATRICK : 1955 MR#: [id number] ADMIT: 01/06/2017 JOB ID: [id number] DATE: 01/10/2017 INFECTIOUS DISEASE FOLLOW UP NOTE: REASON FOR FOLLOWUP: Right-sided pulmonary infiltrates which likely represent malignancy with superinfection. INTERVAL HISTORY: Over the past 24 hours, the patient underwent successful repair of his right hip fracture by Dr. Chang. This was actually performed on the . Postoperatively the patient has been doing well. He reports no fevers, no chills. No sweats. No significant cough beyond minimal baseline cough. We discussed the course of his right upper lobe infiltrate and how back in around [place] time he had quite a significant cough with purulent sputum as well as symptoms consistent with systemic infection. This improved during his long course of oral antibiotics which has now stretched out to about eight months. Coincident with this antibiotic therapy, his right upper lobe infiltrate decreased considerably in size but eventually reached a stable minimum and has now started to increase and we discussed what this might mean. PHYSICAL EXAMINATION: Reveals an afebrile gentleman, in no acute distress. Pulse is variable, but currently in the 90s. Respiratory rate 18 and unlabored. Blood pressure 96/68. He is saturating well on 2 L. His lungs are notable for decreased breath sounds bilaterally as at baseline with very little in the way of a wheeze on the right side. Abdomen benign. He has a postop hip on the right. LABORATORIES: Include a white count 13,000 yesterday, creatinine 0.77. Procalcitonin 0.15. Serologic studies: Fungitell and galactomannan are pending. No recent micro is available. IMAGING: Our most recent imaging of the chest was the CT scan done on the which has previously been reviewed in detail with Radiology as well as Pulmonary as well as Heme/Onc. It shows a slight increase in the right upper lobe abnormality and no change in the right lower lobe infiltrate. IMPRESSION: I am inclined to believe that the patient has had an adequate course of therapy for what likely represented an abscess or necrotizing pneumonia in association with what is probably a right upper lobe recurrent malignancy. The infiltrate decreased in size and his symptoms resolved during his first few months of therapy with oral cephalosporins and Flagyl which was later changed to oral clinda. In recent months there has not been any seeming additional benefit from the oral antibiotics and there has been no systemic evidence of infection nor any further decrease in the right upper lobe infiltrate. At this point, I think we could reasonably stop antibiotics and I plan to discuss such a course with Dr. Steward later today by telephone. RECOMMENDATIONS: 1. For today we will continue with clindamycin but I think we are likely approaching a point where we are going to stop. 2. I plan to discuss the situation again with Dr. Steward of Heme/Onc. Dr. Forbes of Pulmonary is of the opinion that we are no longer getting any benefit from our oral antibiotics as he has already had eight months of therapy and he is stable and I am inclined to agree.
--- NOTE | 2017-01-10 16:17 | NUR ---
Social Work- Continued D/C Planning Data: EMR reviewed. Pt is on day 3 of hospitalization. Pt discussed in multidisciplinary rounds, pt is POD 2. T/C from [facility] regarding SNF. [facility] has accepted pt. No response from [facility]. Pt and updated at bedside. Pt is agreeable to d/c to [facility] rather than [facility]. Paperwork in patient's chart. PASRR in folder. SW will continue to follow. Assessment: Pt for whom SNF is medically indicated Plan: [facility] has accepted pt with Giovanni to follow. Paperwork in patient's chart. PASRR in folder. SW will continue to follow. CHAI Coyle
[2017-01-10] MEDS: Alum-Mag Hydrox-Simeth 30 mL Suspension PO PRN (17:22)
--- NOTE | 2017-01-10 18:30 | NUR ---
In and Out Catheter Pt unable to void. bladder scan >450ml and pt c/o urge to void but unable too. In and out catheter performed. First catheter was difficult and unable to pass. A Caudae catheter had to be used and was passed without difficulty. 700ml drained out and catheter removed without any issues. Care continues
--- NOTE | 2017-01-10 20:43 | NUR ---
Patient refused his evening tx. Patient said he was tired and didn't want to be disturbed. Patient was in no respiratory distress vitals WNL
[2017-01-11] MEDS: Sodium Chloride LOK Flush 10 mL Syringe IV SCH ×2 (00:30→08:30)
[2017-01-11 00:36] VITALS: BP 90/62; PULSE 59; RESP 16; O2SAT 93
[2017-01-11] MEDS: hydrOXYzine Pamoate 25 mg Capsule PO PRN ×3 (00:47→12:25)
--- NOTE | 2017-01-11 01:29 | PROG NOTE ---
[address] [address] PROGRESS NOTE PATIENT: EILEEN PATRICK : 1955 MR#: [id number] ADMIT: 01/06/2017 JOB ID: [id number] DATE: 01/10/2017 HOSPITAL ROUNDS: Day four of hospitalization for right intertrochanteric femoral fracture status post pinning. 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 He had been most recently radiated to a right upper lobe biopsy-proven mass; that mass also appeared to have harbored infection and was treated as an abscess. Currently, he is in the hospital for his fracture and is recovering. He is anticipated to be able to go to rehab soon. I was asked to see the patient regarding evaluating him for metastatic disease. It appears that he has at least two sites in his chest that might be metastatic, including the previously radiated mass in the upper chest and the lower lobe mass associated with pleural thickening, which may represent malignancy as well. Also, at least one lytic lesion with other lucent lesions in the pelvis. I have discussed these findings with the patient, indicating that if he does have widespread metastatic disease, systemic therapy with chemotherapy might be appropriate. However, if he is having pain or other symptoms related to these lesions, radiation therapy could also be considered as has been done before. Subjectively, the patient states he feels much better. He is sitting up in bed. He has eaten and he states his pain is under good control. He is looking forward to going to rehab for 10 days. PHYSICAL EXAMINATION: His temp was 37.1 at 1949, pulse 121, respiratory rate 18, blood pressure 95/66. He is lying in bed comfortably. LABORATORY VALUES: The white count is 13.4, hemoglobin 10.0, hematocrit 30.6, platelets 101. BUN is 17, creatinine 0.77. RADIOLOGIC DATA: Imaging of the chest includes a CT on January 07 showing a slight increase in size of right upper lobe malignancy. No change in right lower lobe density. No change in bilateral rib fractures. The rib fractures in the right posterior 9th, 10th and 11th ribs are described as being lytic. Not mentioned in the report is pleural thickening at that site, as well. Pelvis CT scan shows the mildly displaced comminuted right intertrochanteric proximal femur fracture and findings suspicious for a left posterior iliac wing metastasis. ASSESSMENT AND RECOMMENDATIONS: 1. Hip fracture. The patient will be going to rehab soon. Additional workup for metastatic disease will have to wait at least until he is back on his feet. I have recommend to the patient that he be seen in the oncology clinic in three weeks. 2. Regarding the likelihood of metastatic disease both in the chest and pelvis, I have spoken with Dr. Brant Lopez. If these are truly isolated lesions and if associated with symptoms, they might be amenable to radiation therapy. Using systemic therapy, in my opinion, at this point, is not advisable because of the very indolent nature of his recurrences historically. The plan is to have him see myself in three weeks to further work up metastatic disease, to include a biopsy both of the pelvic lesion and the chest lesion, and to follow up with Dr. Lopez, which will be set up as an outpatient.
[2017-01-11 04:22] VITALS: BP 94/61; PULSE 56; RESP 18; O2SAT 98
--- NOTE | 2017-01-11 06:51 | PCM.PNORTH ---
Subjective Date of Service: Jan 11, 2017 Visit Information: Reason for Visit Intertrochanteric Fracture Of R Hip,Glf Surgery/Surgery Date R HIP FEMORAL NAIL 01/08/17 Post-Op Day # Date of Admission: Jan 06, 2017 at 23:26 Hospital Day # Subjective Found the patient awake and alert and sitting up in bed. Patient is well- positioned and comfortable. No complaints of pain at this time. Discussed his performance with physical therapy and likely discharge to halfway facility and patient is agreeable to this. He is already aware and is planning to discharge to [facility] nursing [facility]. Postop General: No Complaints, No Shortness of Breath, No Chest Pain Pain Management: PO Objective Exam Objective Alert and oriented 3 and pleasant. Postoperative dressing is clean dry and intact. Calf and thigh are soft and nontender. Toe wiggle and sensation are intact at right lower extremity distally [place] is absent Bilateral SCDs are absent Bilateral thigh-high KATHY hose are absent Gait 15 feet with formal physical therapy on 01/10/2017. Recommendation is for discharge to halfway facility versus home with home health. Vital Signs and I/O Vital Sign - Last Date Time Temp Pulse Resp B/P Pulse Ox O2 Delivery O2 Flow Rate FiO2 01/11/17 04:22 36.8 56 18 94/61 98 OxyMask 2.00 Intake and Output 01/10/17 01/10/17 01/11/17 Cumulative From/Thru 15:00 23:00 07:00 01/06/17 22:00 - 01/11/17 06:09 Intake Total 1400 ml 492 ml 9163 ml Output Total 1500 ml 700 ml 6825 ml Balance -100 ml -208 ml 2338 ml Intake Oral 1400 ml 400 ml 3700 ml IV Total 92 ml 5463 ml Output Urine Total 1500 ml 700 ml 6750 ml Stool Total 0 ml 0 ml 0 ml Estimated Blood Loss 75 ml # Bowel Movements 0 Result Diagram: 01/09/17 0501/09/17 0525 General Appearance: Alert, Oriented X3, Cooperative, No Acute Distress Extremities: No Compartment Syndrom Noted, Thigh & Calf Soft/Nontender Postop Sensory Motor: Distal Motor Intact, Movement in Toes, Distal Sensation Intact Catheters: None Assessment & Plan Plan Postop day #3 from right hip intertrochanteric nail placed on 01/08/[address] Adán Chang. Weightbearing as tolerated on the right lower extremity using front wheeled walker. Continue formal physical therapy for mobility, gait and safety. Continue by mouth pain medication as needed and discontinue IV pain medication. Continue Lovenox 40 mg subcutaneous daily 3 weeks postop followed by ASA 325 mg EC by mouth twice a day for an additional 3 weeks postop following 6 weeks DVT prophylaxis. Keep dressing clean dry and intact and change when solar loosened. Nursing please place and continue bilateral thigh-high KATHY hose and bilateral SCDs. Follow-up in 2 weeks [facility] orthopedic clinic with mid-level provider for wound check and suture removal. Follow up in 6 weeks at [facility] orthopedic clinic with Dr. Adán Chang with 2 view right femur x-rays on arrival. Orthopedics thanks [facility] for their help with the medical management of this patient. Orthopedics will sign off at this time but has always will remain available for consultation or treatment as needed. Anticipate discharge to halfway facility by hospitalist service today on postop day #3, 01/11/2017 if patient is determined to be medically stable to do so. VTE Prophylaxis: Sub-Q Enoxaparin (Lovenox 40 mg subcutaneous daily 3 weeks postop with transition to ASA 325 mg EC by mouth twice a day for an additional 3 weeks totaling 6 weeks DVT prophylaxis), SCDs (bilateral SCDs), KATHY Hose ( bilateral thigh-high KATHY hose) Resuscitation Status: CPR: Attempt Resuscitation Aleksandr Flores PA-C Jan 11, 2017 06:51
[2017-01-11 08:26] VITALS: PULSE 102; RESP 18; O2SAT 98
[2017-01-11] MEDS: Budesonide 0.5 mg/2 mL Inhalation Solution NEB SCH (08:26)
[2017-01-11] MEDS: Albuterol-Ipratropium 3 mL Inhalation Solution NEB SCH (08:26)
[2017-01-11] MEDS: Senna-Docusate 8.6-50 mg Tablet PO SCH (08:38)
[2017-01-11] MEDS: Pantoprazole 20 mg ER24 Tablet PO SCH (08:38)
[2017-01-11] MEDS: Fluticasone-Salmeterol 500-50 Inhaler INHALATION SCH (08:40)
[2017-01-11] MEDS: Tiotropium 18mcg/Cap 5 Capsule Inhaler Kit INHALATION SCH (08:40)
[2017-01-11 09:06] LABS: Mean Corpuscular Hemoglobin 31.4 pg (27.0-35.0); Mean Corpuscular Volume 95.7 fL (81-100)
[2017-01-11] MEDS: 0.9% Sodium Chloride 1,000 ML IV SCH (09:25)
[2017-01-11] MEDS: 0.9% Sodium Chloride 250 ML IV SCH (10:26)
--- NOTE | 2017-01-11 11:09 | NUR ---
SNF TRANSFER FOLLOW UP: Called and left message for [facility] following up on referral sent a few days ago. Asking for call back on acceptance or denial. Patient's works in [place] and this would be their preference. Updated [employer]
--- NOTE | 2017-01-11 11:55 | PCM.DIMED ---
Discharge Instructions Date of Service Jan 11, 2017 Dates of Hospitalization Jan 06, 2017 at 23:26 Discharge Diagnosis Discharge Diagnosis Right intertrochanteric hip fracture, s/p surgery R HIP FEMORAL NAIL 01/08/17, Hyponatremia, Abscess of RLL without PNA,RA, Stage IV squamous cell carcinoma of head and neck status post radiation and chemotherapy, Leukocytosis, History of Small bowel obstruction, status post ostomy placement, COPD Medication Instructions Additional med instructions For DVT prophylaxis DVT: Orthosurgery recommended Lovenox 40 mg subcutaneous 3 weeks followed by aspirin 325 mg twice a day 3 weeks Diet Discharge Diet: Heart Healthy Activity Discharge Activity: Other (physical therapy, occupational therapy) Call your provider Call your provider for: Fever or Chills, Shortness of breath, Bleeding, Chest pain, Vomitting, Excessive diarrhea, Weakness (unilateral) Patient Instructions Patient Instructions For DVT prophylaxis - Orthosurgery recommended Lovenox 40 mg subcutaneous 3 weeks followed by aspirin 325 mg twice a day 3 weeks Follow-up plan Follow-up with oncologist for further evaluation and possible biopsy. Follow-up with PCP in: 1 week Oscar Qureshi MD Jan 11, 2017 11:55
[2017-01-11] MEDS ORDERED: OXYC20TA4 PO (12:09)
[2017-01-11] MEDS ORDERED: ENOX40DI8 SUBQ ×2 (12:09→12:10)
--- NOTE | 2017-01-11 12:29 | NUR ---
SNF TRANSFER - [facility] T/C to Bella in admissions. Bella requested facesheet be faxed to [phone] for final review. BARNEY updated Bella that pt is to be discharged today. Bella will reach decision and update BARNEY within the hour. T/C to Moises at [facility] - [facility] will hold bed open for discharge today if [facility] can't accept. CHAI Stephen Addendum: 01/11/17 at 1437 by STACYE CASTELLANOS SS BARNEY met with pt and pt would like to go to [facility] because it will be closer to his providers for follow-up care. BARNEY updated [facility].
[2017-01-11 12:56] VITALS: BP 85/56; PULSE 81; RESP 18; O2SAT 91
--- NOTE | 2017-01-11 13:45 | PCM.DC.MED ---
Discharge Summary Date of Service Jan 11, 2017 Dates of Hospitalization Date of Hospital Admission Jan 06, 2017 at 23:26 Date of Discharge: Jan 11, 2017 Providers: Admitting Physician: Kyle Connor MD Primary Care Physician: Antione Rodriguez MD Attending Physician: Oscar Qureshi MD Diagnosis at Time of Discharge Diagnosis at Time of Discharge Right intertrochanteric hip fracture, s/p surgery R HIP FEMORAL NAIL 01/08/17, Hyponatremia, Abscess of RLL without PNA,RA, Stage IV squamous cell carcinoma of head and neck status post radiation and chemotherapy, Leukocytosis, History of Small bowel obstruction, status post ostomy placement, COPD Procedures XRay, CTs & MRIs CT HIP 1. Mildly displaced comminuted right intratrochanteric proximal femur fracture. 2. No evidence of underlying right femoral metaphysis by CT. MRI with and without intravenous contrast would be more sensitive for detection of such. 3. Findings suspicious for left posterior iliac wing metastasis. 4. Distended urinary bladder. XR LEG IMPRESSION: Stable appearance of minimally displaced right intratrochanteric hip fracture. Brief History Mr. 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 Initial imaging revealed a right intratrochanteric fracture. Patient was admitted for evaluation and treatment of acute right intertrochanteric fracture. 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 He denies any loss of consciousness, near syncope, syncope, chest pain, palpitation, dizziness, acute vision changes, headache, head trauma, or any other symptoms or events preceding the fall. Other than this recent fall, patient states he has been doing fairly well over recent weeks. He follows up with Dr. Patel of infectious disease, with most recent visit dated 11/14/2016 , for a lung abscess on long-term antibiotic therapy of clindamycin. He is followed by [facility] oncology, Dr. Steward, for his squamous cell carcinoma of head and neck with multiple metastases, most recent visit dated 11/06/2016, and patient was found to be clinically in remission at that time. He is followed by Dr. Garcia for rheumatoid arthritis. Hospital Course Patient underwent R HIP FEMORAL NAIL on 01/08/17. Physical therapy and occupational therapy were consulted and worked with the patient during this admission. Given his complex past medical history infectious disease, oncology, pulmonology services were consulted and helped with management and follow-up plan of his multiple problems. Patient will follow up with his doctors in outpatient settings for further evaluation, management and possible biopsy with further radiation therapy of his cancer. After patient improved, he was discharged to senior care facility with recommendation to follow up with his oncologist, infectious diseases doctor evp managing director. Patient Condition @ Discharge: good Discharge Disposition: SNF Discharge Activity: Physical therapy at the facility Discharge Diet: regular diet, heart healthy, low fat, low salt, high fiber Information Provided to Patient: information about discharge medications Discharge Medications: I discussed with patient medication dosage, usage, goals of therapy, side effects, alternatives. During discharge patient was allert, oriented, fully competent, able to make own informed decisions. We discussed possible severe side effects, adverse reactions, benefits, risks, alternatives of current and newly prescribed medications and diagnostic procedures. Patient verbalized understanding and agreed to current plan of care and discharge. TIME SPENT IN DISCHARGE ACTIVITY: Face to face activity greater then 30 minutes spent in discharge activity. 1. Discussed with patient re: discharge plan of care/treatment, and follow up care/services. 2. Patient agreed with discharge plan and further plan of care, all questions were answered/addressed, no further questions at the time of discharge. Exam Vital Signs (Last) Date Time Temp Pulse Resp B/P Pulse Ox O2 Delivery O2 Flow Rate FiO2 01/11/17 12:56 36.7 81 18 85/56 91 Room Air 01/11/17 08:26 2.00 Test 01/06/17 23:07 01/06/17 23:23 01/07/17 04:41 01/08/17 05:10 Band Neutrophils % 1% (1-5) Prothrombin Time 10.7sec (8.1-12.5) Prothromb Time International Ratio 1.00ratio Activated Partial Thromboplast Time 25.6sec (22.8-33.0) Magnesium Level 1.6mg/dL (1.6-2.6) Lipase 25U/L (13-60) Hold Fry Top Tube Received (Received) Total Bilirubin 0.3mg/dL (0.0-1.2) Aspartate Amino Transf (AST/SGOT) 32U/L (0-50) Alanine Aminotransferase (ALT/SGPT) 18U/L (0-44) Alkaline Phosphatase 51U/L (25-160) Total Protein 6.6g/dL (6.4-8.4) Albumin 3.7g/dL (3.4-5.0) Procalcitonin 0.15ng/mL (0.00-0.08) Test 01/08/17 14:10 01/08/17 20:54 01/09/17 05:25 01/11/17 09:00 Fungal Antibodies 37pg/mL (<80) Aspergillus galactomannan Antigen 0.00Index (0.00-0.49) Urine Color Dark yellow (YELLOW) Urine Appearance Cloudy (CLEAR,HAZY) Urine pH 5.5 (5.0-8.0) Urine Specific [place] 1.020 (1.003-1.035) Urine Protein 30mg/dL (NEG,TRACE) Urine Glucose (UA) Negativemg/dL (NEGATIVE) Urine Ketones 15mg/dL (NEGATIVE) Urine Occult Blood Large (NEGATIVE) Urine Nitrite Negative (NEGATIVE) Urine Bilirubin Negative (NEGATIVE) Urine Urobilinogen Normalmg/dL (NORMAL) Urine Leukocyte Esterase Trace (NEGATIVE) Urine RBC 11-50/hpf (0-2) Urine WBC 0-5/hpf (0-5) Urine Epithelial Cells Occasional/hpf (NONE-MOD) Urine Crystals None seen (NONE SEEN) Urine Bacteria None/hpf (NONE-FEW) Urine Hyaline Casts None/lpf (NONE) Urine Granular Casts None seen (NONE SEEN) Urine Waxy Casts None seen (NONE SEEN) Urine Red Blood Cell Casts None seen (NONE SEEN) Urine White Blood Cell Casts None seen (NONE SEEN) Urine Mucus None seen (None Seen) Urine Trichomonas None seen (NONE SEEN) Urine Yeast None (NONE SEEN) Urinalysis Comment None Neutrophils (%) (Auto) 93.9% (40-74) Lymphocytes (%) (Auto) 2.3% (14-46) Monocytes (%) (Auto) 3.4% (4-12) Eosinophils (%) (Auto) 0.1% (0-5) Basophils (%) (Auto) 0.1% (0-3) Sodium Level 131mEq/L (134-144) Potassium Level 4.6mEq/L (3.5-5.2) Chloride Level 97mEq/L (97-108) Carbon Dioxide Level 21mmol/L (18-29) Blood Urea Nitrogen 17mg/dL (8-27) Creatinine 0.77mg/dL (0.76-1.27) Estimat Glomerular Filtration Rate 108mL/min (>59) Glucose Level 119mg/dL (60-99) Calcium Level 7.2mg/dL (8.5-10.1) White Blood Count 9.6th/mm3 (3.8-10.1) Red Blood Count 3.03mil/mm3 (4.40-5.80) Hemoglobin 9.5g/dL (13.8-17.2) Hematocrit 29.0% (41.0-50.0) Mean Corpuscular Volume 95.7fL (81-100) Mean Corpuscular Hemoglobin 31.4pg (27.0-35.0) Mean Corpuscular Hemoglobin Concent 32.8% (32.0-37.0) Red Cell Distribution Width 14.3% (12.3-15.4) Platelet Count 162bil/L (150-400) Discharge Medications Discharge Medications Aspirin (Aspirin) 81 Mg Tablet 81 MG PO QPM (Reported) Cholecalciferol (Vitamin D3) (Vitamin D3) 2,000 Unit Tablet 2,000 UNIT PO DAILY (Reported) Clindamycin (Clindamycin) 300 Mg Capsule 300 MG PO QID (Reported) Enoxaparin Sodium (Enoxaparin Sodium) 40 Mg/0.4 Ml Syringe 40 MG SUBQ Q24 After you finish with Enoxaparin continue with Aspirin 325 mg twice daily for 3 weeks(per orthosurgery recomendation). Prescribed by: ALEX WATT MD Fluticasone/Vilanterol (Breo Ellipta 200-25 Mcg INH) 200 Mcg-25 Mcg/Dose Blst.w.dev 1 PUFFS IH DAILY (Reported) Folic Acid (Folic Acid) 1 Mg Tablet 800 MG PO DAILY (Reported) Levothyroxine (Synthroid) 137 Mcg Tablet 137 MCG PO DAILY Prescribed by: DELGADO MEZA DO Methotrexate Sodium (Methotrexate) 2.5 Mg Tablet 15 MG PO Q Saturday (Reported) Omeprazole (Omeprazole) 20 Mg Capsule.dr 20 MG PO BID (Reported) Tiotropium [place] (Spiriva) 18 Mcg Cap.w.dev 1 PUFF IH DAILY (Reported) As needed Albuterol Sulfate (Ventolin HFA Inhaler) 200 Puff/18 Gm Inhaler 2 PUFF INH Q4 PRN PRN For Wheezing (Reported) oxyCODONE (oxyCODONE) 20 Mg Tablet 20 MG PO QID PRN PRN For Pain Prescribed by: ALEX WATT MD Additional med instructions For DVT prophylaxis DVT: Orthosurgery recommended Lovenox 40 mg subcutaneous 3 weeks followed by aspirin 325 mg twice a day 3 weeks Followup Plan Follow-up plan Follow-up with oncologist for further evaluation and possible biopsy. Discharge Diet: Heart Healthy Discharge Activity: Other (physical therapy, occupational therapy) Patient Instructions For DVT prophylaxis - Orthosurgery recommended Lovenox 40 mg subcutaneous 3 weeks followed by aspirin 325 mg twice a day 3 weeks Follow-up with PCP in: 1 week Oscar Qureshi MD Jan 11, 2017 13:44
--- NOTE | 2017-01-11 14:37 | NUR ---
Social Work: Discharge/Multidisciplinary Rounds D: EMR reviewed. Pt is on day 5 of hospitalization. Pt discussed in multidisciplinary rounds and is medically stable for discharge to [facility] where he has been accepted with Dr. Davila to follow. Moises from [facility] confirmed [facility] will provide transport for pt today at 1530. Discharge ppw, rx, and PASRR faxed to [facility]. Transfer packet complete and left at RN station, UA/RN updated on transfer time. Pt updated on transfer time and discharge plan. All updated and agreeable to plan. A: Pt for whom a SNF is medically necessary P: Pt to transfer to [facility] via [facility] today at 1530. Discharge ppw, rx, and PASRR faxed to [facility]. Transfer packet complete and left at RN station, UA/RN updated on transfer time. Pt updated on transfer time and discharge plan. All updated and agreeable to plan. CHAI Stephen
--- NOTE | 2017-01-11 15:37 | PROG NOTE ---
[address] [address] PROGRESS NOTE PATIENT: EILEEN PATRICK : 1955 MR#: [id number] ADMIT: 01/06/2017 JOB ID: [id number] DATE: 01/11/2017 REASON FOR FOLLOWUP: Lung abscess, right upper lobe. INTERVAL HISTORY: The patient went ahead and stopped his clindamycin on his own yesterday because it was giving him heartburn and he did not have access to his preferred anti-reflux medication. This dovetails nicely with our plan to go ahead and stop the clindamycin, and I have advised him that we should probably stop at this point, as he has had no recent fevers, chills, sweats, cough, or chest pain. Today, he feels well and his hip has now been surgically repaired, and he is being prepared for discharge to [facility]. PHYSICAL EXAMINATION: Reveals an afebrile gentleman, temperature 36.7, pulse 81, respiratory rate 18, blood pressure 85/56. He is saturating reasonably well on room air. He is in no acute distress. Lungs are clear posteriorly. Cardiac tones without murmur. Abdomen benign. LABORATORIES: Include white count 9600 today. Creatinine 0.77. Fungitell and galactomannan negative. Urinalysis without white cells. No new micro is available. IMPRESSION: I think the findings on the recent CT scan of both upper and lower right lung disease are most compatible with metastatic malignancy, and I think that we have now completed almost nine months of therapy for what started off as at least partially a right upper lobe abscess which undoubtedly had some malignant component to it. At this point, I think the maximal benefit of antibiotics has been reached and perhaps exceeded and at this point will stop the clindamycin. RECOMMENDATIONS: 1. Clindamycin will be discontinued at this point. 2. The patient can be observed off antibiotics as he recovers from his fractured hip. Should he developed fevers, chills, purulent sputum, or rapidly increasing infiltrate, of course will need to reconsider this decision, but for now I would consider the patient infection-free. 3. Followup will be with Dr. Steward and perhaps Pulmonary, as well as Radiation Therapy.
--- NOTE | 2017-01-11 16:25 | NUR ---
DC Pt leave via transport services to [facility]. Family aware. Report phoned into [facility]. Care discontinues
== END 2017-01-11 16:15 | DRG 480 ==
LOC: EDUNIT# 21:12 → EDBD 21:12 → SED 21:12 → OSC 23:26
PROVIDERS: ADMIT Hospitalist; ATTEND Internal Medicine
PROC: 0QS634Z Reposition Right Upper Femur with Internal Fixation Device, Percutaneous Approach (ICD-10-PCS; principal; 2017-01-08 14:00)
DX: M80.051A Age-related osteoporosis with current pathological fracture, right femur, initial encounter for fracture (principal); J85.2 Abscess of lung without pneumonia; C78.01 Secondary malignant neoplasm of right lung; C78.7 Secondary malignant neoplasm of liver and intrahepatic bile duct; S72.141A Displaced intertrochanteric fracture of right femur, initial encounter for closed fracture; Z79.82 Long term (current) use of aspirin; D02.0 Carcinoma in situ of larynx; Z87.891 Personal history of nicotine dependence; Z92.3 Personal history of irradiation; Z92.21 Personal history of antineoplastic chemotherapy; W18.30XA Fall on same level, unspecified, initial encounter; Y93.G1 Activity, food preparation and clean up; Y92.010 Kitchen of single-family (private) house as the place of occurrence of the external cause; Z93.3 Colostomy status; J44.9 Chronic obstructive pulmonary disease, unspecified; M06.9 Rheumatoid arthritis, unspecified